=== PATIENT | male | born 1950 | race Caucasian/White ===

== ENCOUNTER 2018-06-08 16:36 | Inpatient (IN) | payer MEDICARE ==
[~2018-06-08] VITALS: Ht 177.8 cm; Wt 73.3 kg
[~2018-06-08 16:36] MED LIST: ANTIBIOTIC; ASPI325; CENTRUM SILVER1 EAC2 PO; CLOP75; CODE30; CODEINE; FOLI1 PO; HYDACE5 PO; HYDMOR4; LACT10SY PO; MARIJUANA; Norco 10-325 T1 EACH PO; Prilosec Otc20 MG PO; WARF1; WARF10; WARF7.5; [UNRECOGNIZED DRUG - OTHER]; [UNRECOGNIZED DRUG - REMARK]
[2018-06-08 17:55] LABS: BASOPHILS ABSOLUTE AUTO 0.06 K/mm3 (0.00-0.23); BASOPHILS PERCENT AUTO 1 % (0-2); EOSINOPHILS ABSOLUTE AUTO 0.05 K/mm3 (0.00-0.68); EOSINOPHILS PERCENT AUTO 1 % (0-6); Hematocrit 38.5 % (37.0-53.0); Hemoglobin 13.3 g/dL (13.5-17.5); IMMATURE GRAN ABSOLUTE AUTO 0.05 K/mm3 (0.00-0.10); IMMATURE GRAN PERCENT AUTO 1 % (0-1); LYMPHOCYTES ABSOLUTE AUTO 1.44 K/mm3 (0.84-5.20); LYMPHOCYTES PERCENT AUTO 18 % (21-46); MONOCYTES ABSOLUTE AUTO 1.44 K/mm3 (0.16-1.47); MONOCYTES PERCENT AUTO 18 % (4-13); Mean Corpuscular HGB Conc 34.5 g/dL (31.5-36.5); Mean Corpuscular Volume 104 fL (80-100); Mean Platelet Volume 9.8 fL (9.1-12.4); NEUTROPHILS PERCENT AUTO 62 % (41-73); Platelet Count 114 K/mm3 (150-400); RDW Coefficient Variation 14.3 % (11.7-14.2); RDW Standard Deviation 55.2 fL (35.1-46.3); Red Blood Cell Count 3.69 M/mm3 (4.30-5.90); White Blood Cell Count 8.04 K/mm3 (4.00-11.30)
[2018-06-08] MEDS ORDERED: CLOP75 PO (17:59)
[2018-06-08] MEDS ORDERED: Hair, Skin & N1 EACH PO (18:00)
[2018-06-08] MEDS ORDERED: ATOR20 PO (18:00)
[2018-06-08] MEDS ORDERED: ASPI81CH PO (18:01)
[2018-06-08 18:14] LABS: International Normalized Ratio 1.33; Prothrombin Time Results 13.7 Sec (9.7-11.5)
--- NOTE | 2018-06-08 18:24 | NUR ---
FROM ER TO SDS WITH RN CARDIAC CATH TO UNIT STARTED
[2018-06-08 18:30] LABS: Alanine Aminotransfer (ALT/SGP 57 U/L (12-78); Albumin, Blood 2.8 g/dL (3.4-5.0); Albumin/Globulin Ratio 0.7 (0.8-1.8); Alk Phos 120 U/L (50-136); Anion Gap 7 mmol/L (6-16); Aspartate Aminotrans (AST/SGOT 113 U/L (12-37); Bilirubin, Total 2.2 mg/dL (0.1-1.0); Blood Urea Nitrogen 28 mg/dL (8-24); Bun/Creatinine Ratio 43.1 (12.0-20.0); CO2, Blood 34 mmol/L (21-32); Calcium, Blood 8.2 mg/dL (8.5-10.1); Chloride, Blood 92 mmol/L (98-108); Creatinine, Blood 0.65 mg/dL (0.60-1.20); Glomerular Filtration Rate >60 (60-); Glucose, Blood 104 mg/dL (70-99); Potassium, Blood 2.2 mmol/L (3.5-5.5); Sodium, Blood 133 mmol/L (136-145); Total Protein, Blood 6.8 g/dL (6.4-8.2)
--- NOTE | 2018-06-08 20:00 | NUR ---
PT ADMITTED TO ROOM ICU 12 FROM OR POST VARICE BANDING. PT ARRIVES ON NRB AND HAS BEEN CHANGED TO NASAL CANNULA SINCE AT 4 L/M. HAS MAINTAINED >90 PERCENT SATURATION. WILL CONTINUE TO ASSESS FOR ABILITY TO DECREASE OXYGEN FLOW. DR WOODARD NOTIFIED THAT PT WAS IN UNIT. SHE COMES TO SEE PT. PT NOTED TO BE FLATULANT. DOES STATE HE HAS NOT HAD A BOWEL MOVEMENT IN OVER ONE WEEK. HAS TOLD HIS FAMILY THAT HE INTENDS TO LEAVE IN MORNING BECAUSE HE HAS A CHARTERED FISHING TRIP OUT OF [place] ON MONDAY. DR WOODARD MADE AWARE OF PT'S INTENT TO LEAVE IN AM. HAVE INSTRUCTED PT THAT HE MOST LIKELY WILL NOT BE RELEASED TOMORROW SECONDARY TO BEING POST PROCEDURE. PT AND DAUGHTER ASSIST WITH INTERVIEW AND HISTORY AND PHYSICAL. WILL REVIEW CHART AND PLAN OF CARE FOR THIS PT.
[2018-06-08 20:39] LABS: Magnesium, Blood 1.8 mg/dL (1.6-2.4)
--- NOTE | 2018-06-08 23:00 | NUR ---
PT HAS HAD SEVERAL BLACK COLORED STOOL. PT HAS NO COMPLAINTS OF NAUSEA OR PAIN AT THIS TIME. CONTINUES ON SANDOSTATIN, AND PROTONIX PER ORDERS. PT USES CALL LIGHT SYSTEM APPROPRIATELY. REQUIRES 2 LITERS OF OXYGEN PER NASAL CANNULA WHILE ASLEEP TO MAINTAIN SATURATION > 90 PERCENT. WILL CONTINUE TO MONITOR PT.
[2018-06-09 00:15] LABS: Hematocrit 32.8 % (37.0-53.0); Hemoglobin 11.1 g/dL (13.5-17.5)
--- NOTE | 2018-06-09 02:00 | NUR ---
PT CONTINUES WITHOUT COMPLAINTS OF NAUSEA. HAS HAD BLACK STOOL WITH MAROON COLORATION WHEN EXPOSED TO TOILET WATER. NO COMPLAINTS OF PAIN. HAS BEEN INDEPENDENT IN MOVING ABOUT BED. NO S/S ETOH WITHDRAWALS AT THIS TIME. WILL CONTINUE TO MONITOR PT.
[2018-06-09 04:27] LABS: Hemoglobin 10.1 g/dL (13.5-17.5)
[2018-06-09 04:30] LABS: BASOPHILS ABSOLUTE AUTO 0.01 K/mm3 (0.00-0.23); BASOPHILS PERCENT AUTO 0 % (0-2); EOSINOPHILS PERCENT AUTO 0 % (0-6); Hematocrit 28.4 % (37.0-53.0); Hemoglobin 10.1 g/dL (13.5-17.5); IMMATURE GRAN ABSOLUTE AUTO 0.02 K/mm3 (0.00-0.10); IMMATURE GRAN PERCENT AUTO 1 % (0-1); LYMPHOCYTES ABSOLUTE AUTO 0.42 K/mm3 (0.84-5.20); LYMPHOCYTES PERCENT AUTO 12 % (21-46); MONOCYTES PERCENT AUTO 9 % (4-13); Mean Corpuscular HGB 36.5 pg (26.0-34.0); Mean Corpuscular HGB Conc 35.6 g/dL (31.5-36.5); Mean Corpuscular Volume 103 fL (80-100); Mean Platelet Volume 9.6 fL (9.1-12.4); NEUTROPHILS PERCENT AUTO 78 % (41-73); Platelet Count 74 K/mm3 (150-400); RDW Coefficient Variation 14.5 % (11.7-14.2); RDW Standard Deviation 54.3 fL (35.1-46.3); Red Blood Cell Count 2.77 M/mm3 (4.30-5.90); White Blood Cell Count 3.45 K/mm3 (4.00-11.30)
[2018-06-09 04:45] LABS: Alanine Aminotransfer (ALT/SGP 46 U/L (12-78); Albumin, Blood 2.3 g/dL (3.4-5.0); Albumin/Globulin Ratio 0.7 (0.8-1.8); Alk Phos 89 U/L (50-136); Anion Gap 5 mmol/L (6-16); Aspartate Aminotrans (AST/SGOT 89 U/L (12-37); Blood Urea Nitrogen 24 mg/dL (8-24); Bun/Creatinine Ratio 43.3 (12.0-20.0); CO2, Blood 34 mmol/L (21-32); Chloride, Blood 100 mmol/L (98-108); Creatinine, Blood 0.55 mg/dL (0.60-1.20); Globulin, Blood 3.4 g/dL (2.2-4.0); Glomerular Filtration Rate >60 (60-); Glucose, Blood 152 mg/dL (70-99); Potassium, Blood 2.9 mmol/L (3.5-5.5); Sodium, Blood 139 mmol/L (136-145); Total Protein, Blood 5.7 g/dL (6.4-8.2)
--- NOTE | 2018-06-09 05:36 | NUR ---
PT HAS HAD THREE BM'S THIS NIGHT. HAD STATED ON ADMIT THAT HE HAD BEEN OVER A WEEK WITHOUT BOWEL MOVEMENT. HAS NOT HAD ANY COMPLAINTS OF PAIN OR NAUSEA SINCE ADMIT. HAS BEEN INDEPENDENT WHILE MOVING AOBUT BED. NO COMPLAINTS OF VERTIGO OR DYSPNEA. DID REQUIRE SEVERAL LITERS OF OXYGEN THROUGH THE NIGHT SECONDARY TO DESATURATIONS TO 88 PERCENT. CONTINUES ON OCTREOTIDE AND PROTONIX DRIP. WILL CONTINUE TO MONITOR PT, AND WILL REPORT OFF TO ONCOMING RN.
--- NOTE | 2018-06-09 07:15 | NUR ---
RECEIVED REPORT FROM ANA DE LA GARZA, AND ASSUMED CARE OF PT.
--- NOTE | 2018-06-09 08:00 | NUR ---
CALLED DR. ANDRES RE: PO POTASSIUM ORDER AND DIET. NEW ORDERS PROVIDED.
[2018-06-09 09:09] LABS: BASOPHILS ABSOLUTE AUTO 0.01 K/mm3 (0.00-0.23); BASOPHILS PERCENT AUTO 0 % (0-2); EOSINOPHILS PERCENT AUTO 0 % (0-6); Hematocrit 38.4 % (37.0-53.0); Hemoglobin 12.8 g/dL (13.5-17.5); IMMATURE GRAN ABSOLUTE AUTO 0.02 K/mm3 (0.00-0.10); IMMATURE GRAN PERCENT AUTO 0 % (0-1); LYMPHOCYTES ABSOLUTE AUTO 1.06 K/mm3 (0.84-5.20); LYMPHOCYTES PERCENT AUTO 22 % (21-46); MONOCYTES ABSOLUTE AUTO 0.89 K/mm3 (0.16-1.47); MONOCYTES PERCENT AUTO 18 % (4-13); Mean Corpuscular HGB 36.8 pg (26.0-34.0); Mean Corpuscular HGB Conc 33.3 g/dL (31.5-36.5); NEUTROPHILS PERCENT AUTO 60 % (41-73); Platelet Count 83 K/mm3 (150-400); RDW Coefficient Variation 14.7 % (11.7-14.2); RDW Standard Deviation 59.3 fL (35.1-46.3); Red Blood Cell Count 3.48 M/mm3 (4.30-5.90); White Blood Cell Count 4.88 K/mm3 (4.00-11.30)
[2018-06-09 09:29] LABS: Mean Corpuscular Volume 110 fL (80-100)
--- NOTE | 2018-06-09 13:10 | NUR ---
DR. HERNANDEZ AT BEDSIDE FOR EVALUATION. NEW ORDERS PROVIDED.
--- NOTE | 2018-06-09 14:22 | NUR ---
NURSING SUMMARY ALERT AND ORIENTED X 4, FOLLOWS COMMANDS, DENIES PAIN, VSS. LUNGS CLEAR, DIMINISHED AT THE BASES, ON 2L O2 NC WHILE SLEEPING, REMOVED OXYGEN, SATS REMAINING IN MID-HIGH 90%'S. SR ON THE MONITOR, HR 80'S. PATIENT EXPERIENCED 3 BLOODY STOOLS THUS FAR THIS SHIFT, TWO WERE INCONTINENT STOOLS WHEN PASSING GAS AND ONE WAS A BM ON THE BEDSIDE COMMODE, ALL THREE BM'S WHERE DARK BURGUNDY AND LOOSE. H&H THIS AM 12/38.4, AWAITING RESULTS OF H&H AND POTASSIUM DRAWN AT 1400, POTASSIUM 2.9 THIS AM, GAVE POTASSIUIM CHLORIDE 40 MEQ'S IV. CBC'S SCHEDULED EVERY 8 HOURS, NEXT AT 2100 TONIGHT. OCREOTIDE GTT INFUSING AND PROTONIX DRIP JUST DISCONTINUED WITH NEW ORDER FOR PROTONIX 40 MG IVP BID TO START TONIGHT AT 2100. GAVE BANANA BAG AND DISCONTINUED NS INFUSION PER NEW ORDER. VOIDS PER URINAL OR BEDSIDE COMMODE. OLD HEALING SKIN GRAFT/SCABBED SITE TO LEFT LOWER LEG/RODRIGUEZ AREA, DENIES PAIN. ASSISTED OUT OF BED TO THE BEDSIDE CHAIR TODAY, SAT IN THE CHAIR FOR APPROX. 2 HOURS BEFORE GOING BACK TO BED, MOVES SELF IN BED/REPOSITIONS FREQUENTLY ON HIS OWN. LIVER ULTRASOUND DONE. THREE IV SITES TO RFA 18G, L HAND 20G AND SURI 18G. SCHEDULING PLACEMENT OF POWERGLIDE TODAY. CALLS APPROPRIATELY FOR ASSISTANCE NEEDED.
[2018-06-09 14:38] LABS: Hematocrit 31.5 % (37.0-53.0); Hemoglobin 11.1 g/dL (13.5-17.5)
--- NOTE | 2018-06-09 14:45 | NUR ---
CALLED DR. ANDRES TO REPORT H&H 11.1/31.5, POTASSIUM = 3.0, AND ASKED FOR A STATUS CHANGE. NEW ORDER FOR KDUR 40MEQS PO WITH LAB DRAIN IN THE AM AND TRANSFER TO PCU.
--- NOTE | 2018-06-09 20:00 | NUR ---
ASSUMED CARE OF PT AT 1915. REPORT RECEIVED. PT PRESENTS IN BED. ALERT AND ORIENTED. PLEASANT AND COOPERATIVE WITH CARE AND ASSESSMENT. DENIES COMPLAINTS OF PAIN OR NAUSEA. IS ABLE TO GET OUT OF BED TO COMMODE INDEPENDENTLY. NO COMPLAINTS OF VERTIGO. ACKNOWLEDGES THAT HE CONTINUES TO HAVE LOOSE BLACK/MAROON STOOLS. CONTINUING WITH SERIAL H/H. WILL CLOSELY MONITOR. WILL REVIEW CHART AND PLAN OF CARE FOR THIS PT.
[2018-06-09 21:43] LABS: BASOPHILS ABSOLUTE AUTO 0.02 K/mm3 (0.00-0.23); BASOPHILS PERCENT AUTO 1 % (0-2); EOSINOPHILS ABSOLUTE AUTO 0.09 K/mm3 (0.00-0.68); EOSINOPHILS PERCENT AUTO 2 % (0-6); Hematocrit 27.3 % (37.0-53.0); Hemoglobin 9.3 g/dL (13.5-17.5); IMMATURE GRAN ABSOLUTE AUTO 0.01 K/mm3 (0.00-0.10); IMMATURE GRAN PERCENT AUTO 0 % (0-1); LYMPHOCYTES ABSOLUTE AUTO 1.04 K/mm3 (0.84-5.20); LYMPHOCYTES PERCENT AUTO 24 % (21-46); MONOCYTES ABSOLUTE AUTO 0.61 K/mm3 (0.16-1.47); MONOCYTES PERCENT AUTO 14 % (4-13); Mean Corpuscular HGB 36.8 pg (26.0-34.0); Mean Corpuscular HGB Conc 34.1 g/dL (31.5-36.5); Mean Corpuscular Volume 108 fL (80-100); Mean Platelet Volume 9.6 fL (9.1-12.4); NEUTROPHILS ABSOLUTE AUTO 2.52 K/mm3 (1.96-9.15); NEUTROPHILS PERCENT AUTO 59 % (41-73); Platelet Count 84 K/mm3 (150-400); RDW Coefficient Variation 14.4 % (11.7-14.2); RDW Standard Deviation 56.9 fL (35.1-46.3); Red Blood Cell Count 2.53 M/mm3 (4.30-5.90); White Blood Cell Count 4.29 K/mm3 (4.00-11.30)
--- NOTE | 2018-06-09 22:30 | NUR ---
PT HAS SLOWED ON HAVING LOOSE STOOLS. WEARS ATTENDS SECONDARY TO PASSING SMALL AMOUNTS OF STOOL WITH FLATUS. PT REMAINS ALERT AND ORIENTED. PLEASANT AND COOPERATIVE WITH CARE AND ASSESSMENT. NO S/S ALCOHOL W/D'S AT THIS TIME. HAVE DISCUSSED WITH PT THAT AFTER HAVING HIS VARICES BANDED THAT HE SHOULD DEFINITELY AVOID ETOH WHEN HE GOES HOME. HE VERBALIZES UNDERSTANDING. WILL CONTINUE TO MONITOR.
--- NOTE | 2018-06-10 03:10 | NUR ---
PT CURRENTLY SLEEPING. NO S/S PAIN OR DISTRESS. NO ACTIVE S/S BLEEDING NOTED. MOVES ABOUT BED INDEPENDENTLY. IS GOOD AT REQUESTING ASSIST. WILL CONTINUE TO MONITOR.
[2018-06-10 05:24] LABS: BASOPHILS ABSOLUTE AUTO 0.04 K/mm3 (0.00-0.23); BASOPHILS PERCENT AUTO 1 % (0-2); EOSINOPHILS PERCENT AUTO 3 % (0-6); Hematocrit 27.8 % (37.0-53.0); Hemoglobin 9.5 g/dL (13.5-17.5); IMMATURE GRAN ABSOLUTE AUTO 0.01 K/mm3 (0.00-0.10); IMMATURE GRAN PERCENT AUTO 0 % (0-1); LYMPHOCYTES ABSOLUTE AUTO 0.93 K/mm3 (0.84-5.20); LYMPHOCYTES PERCENT AUTO 27 % (21-46); MONOCYTES ABSOLUTE AUTO 0.46 K/mm3 (0.16-1.47); MONOCYTES PERCENT AUTO 14 % (4-13); Mean Corpuscular HGB Conc 34.2 g/dL (31.5-36.5); Mean Corpuscular Volume 108 fL (80-100); Mean Platelet Volume 9.8 fL (9.1-12.4); NEUTROPHILS ABSOLUTE AUTO 1.85 K/mm3 (1.96-9.15); NEUTROPHILS PERCENT AUTO 55 % (41-73); Platelet Count 84 K/mm3 (150-400); RDW Coefficient Variation 14.4 % (11.7-14.2); RDW Standard Deviation 56.9 fL (35.1-46.3); Red Blood Cell Count 2.57 M/mm3 (4.30-5.90); White Blood Cell Count 3.39 K/mm3 (4.00-11.30)
[2018-06-10 05:45] LABS: Alanine Aminotransfer (ALT/SGP 66 U/L (12-78); Albumin, Blood 2.3 g/dL (3.4-5.0); Albumin/Globulin Ratio 0.7 (0.8-1.8); Alk Phos 78 U/L (50-136); Anion Gap 3 mmol/L (6-16); Aspartate Aminotrans (AST/SGOT 155 U/L (12-37); Bilirubin, Direct 1.6 mg/dL (0.0-0.3); Bilirubin, Indirect 1.4 mg/dL (0.1-0.7); Blood Urea Nitrogen 13 mg/dL (8-24); Bun/Creatinine Ratio 22.6 (12.0-20.0); CO2, Blood 34 mmol/L (21-32); Calcium, Blood 7.3 mg/dL (8.5-10.1); Chloride, Blood 103 mmol/L (98-108); Creatinine, Blood 0.58 mg/dL (0.60-1.20); Globulin, Blood 3.3 g/dL (2.2-4.0); Glomerular Filtration Rate >60 (60-); Glucose, Blood 119 mg/dL (70-99); Phosphorus, Blood 1.5 mg/dL (2.5-4.9); Potassium, Blood 2.9 mmol/L (3.5-5.5); Sodium, Blood 140 mmol/L (136-145); Total Protein, Blood 5.6 g/dL (6.4-8.2)
[2018-06-10 05:52] LABS: Thyroid Stimulating Hormone 0.668 uIU/mL (0.360-4.800)
--- NOTE | 2018-06-10 06:41 | NUR ---
PT HAS BEEN INDEPENDENT IN ROOM. VOIDS QS. CALL MADE TO DR AGUILAR THIS AM CONCERNING LABS. MD TO PUT ORDERS IN SYSTEM. PT DENIES NAUSEA. DOES HAVE COUGH WITHOUT BEING ABLE TO EXPECTORATE. NO S/S BLEEDING AT THIS TIME. WILL CONTINUE TO MONITOR PT, AND WILL REPORT OFF TO ONCOMING RN.
--- NOTE | 2018-06-10 07:20 | NUR ---
ASSUMED CARE: RECEIVED REPORT FROM NOC RN. PT APPEARS TO BE SLEEPING AT THIS TIME WITH EVEN CHEST RISE AND FALL. NO ACUTE DISTRESS NOTED. RECEIVED KCL TO RUN AT THIS TIME WILL ASSESS FURTHER AND CONTINUE TO MONITOR.
--- NOTE | 2018-06-10 17:55 | NUR ---
SHIFT SUMMARY: NO ACUTE CHANGES NOTED T/O THE DAY. PT HAD 2 BM'S THAT WAS NOTED TO BE DARK MAROON IN COLOR. PT HAS BEEN INDEPENDENT IN THE ROOM UP TO THE BSC. PT PROVIDED SELF CARE AFTER BEING PROVIDED THE EQUIPMENT TO CLEAN MICHELLE AREA AND ATTENDS. NO SIGNS OF ALCOHOL WITHDRAW NOTED T/O THE DAY. VSS T/O THE SHIFT. WILL CONTINUE TO MONITOR AND REPORT TO NOC RN. CALL LIGHT IN REACH.
--- NOTE | 2018-06-10 20:51 | NUR ---
PATIENT RESTING QUIETLY IN BED SLEEPING OFF AND ON. NO C/O PAIN OR NAUSEA. VERBALIZED UNDERSTANDING REGARDING HAVING ASSISTANCE WITH GETTING OUT OF BED AND NEED TO CONTINUE TO MONITOR THE LOOK OF HIS BM'S.
[2018-06-11 04:37] LABS: Hematocrit 29.8 % (37.0-53.0); Hemoglobin 10.1 g/dL (13.5-17.5); Mean Corpuscular HGB 36.7 pg (26.0-34.0); Mean Corpuscular HGB Conc 33.9 g/dL (31.5-36.5); Mean Corpuscular Volume 108 fL (80-100); Mean Platelet Volume 9.8 fL (9.1-12.4); Platelet Count 99 K/mm3 (150-400); RDW Coefficient Variation 14.1 % (11.7-14.2); RDW Standard Deviation 55.7 fL (35.1-46.3); Red Blood Cell Count 2.75 M/mm3 (4.30-5.90); White Blood Cell Count 4.18 K/mm3 (4.00-11.30)
[2018-06-11 04:56] LABS: Alanine Aminotransfer (ALT/SGP 89 U/L (12-78); Albumin, Blood 2.3 g/dL (3.4-5.0); Albumin/Globulin Ratio 0.6 (0.8-1.8); Alk Phos 94 U/L (50-136); Anion Gap 3 mmol/L (6-16); Aspartate Aminotrans (AST/SGOT 158 U/L (12-37); Bilirubin, Direct 1.1 mg/dL (0.0-0.3); Bilirubin, Indirect 0.7 mg/dL (0.1-0.7); Bilirubin, Total 1.8 mg/dL (0.1-1.0); Blood Urea Nitrogen 6 mg/dL (8-24); Bun/Creatinine Ratio 11.5 (12.0-20.0); CO2, Blood 34 mmol/L (21-32); Calcium, Blood 7.8 mg/dL (8.5-10.1); Chloride, Blood 103 mmol/L (98-108); Creatinine, Blood 0.52 mg/dL (0.60-1.20); Globulin, Blood 3.6 g/dL (2.2-4.0); Glomerular Filtration Rate >60 (60-); Glucose, Blood 116 mg/dL (70-99); Magnesium, Blood 1.8 mg/dL (1.6-2.4); Phosphorus, Blood 2.8 mg/dL (2.5-4.9); Sodium, Blood 140 mmol/L (136-145); Total Protein, Blood 5.9 g/dL (6.4-8.2)
--- NOTE | 2018-06-11 05:53 | NUR ---
PATIENT TRANSFER TO PCU 8 VIA WHEEL CHAIR. REPORT CALLED TO PAPITO PEREZ PATIENT SLEEPING OFF AND ON T/O NIGHT WITH NO COMPLAINTS AT THIS TIME. NO BM OR SIGN OF BLEEDING T/O NIGHT.
--- NOTE | 2018-06-11 07:15 | NUR ---
SUMMARY PT RECEIVED ICU TRANSFER WITH SHIFT CHANGE.ARRIVED PER W/C.
[2018-06-11] MEDS ORDERED: Oyster Shell C500 MG PO (11:26)
[2018-06-11] MEDS ORDERED: Nicoderm Cq1 EAC1 TOP (11:27)
[2018-06-11] MEDS ORDERED: ONDA4 PO (11:28)
[2018-06-11] MEDS ORDERED: PANT40 PO (11:30)
[2018-06-11] MEDS ORDERED: Micro-K10 MEQ PO (11:31)
[2018-06-11] MEDS ORDERED: SUCR1 PO (11:33)
[2018-06-11] MEDS ORDERED: NADO20 PO (11:35)
--- NOTE | 2018-06-11 17:55 | NUR ---
RECEIVED REPORT AND ASSUMED CARE OF PATIENT, HE IS READY TO GO HOME. DR. ANDRES PLACED ORDERS FOR PATIENT TO BE D/C'D. CALLED AA TO GET MEETING INFORMATION FOR [facility], COLLECTED AND PRINTED ALL DATA FOR DIAGNOSES, MEDICATIONS AND CESSATION AND EDUCATED PATIENT AND PROVIDED INFORMATION IN DISCHARGE FOLDER. PT EXPRESSED UNDERSTANDING AND EXPRESSED DESIRE TO ATTEND AA, HIS NIECE OFFERED TO GO TOGETHER TO MEETINGS, PT SEEMED HAPPY AND LESS APPREHENSIVE TO GO TO MEETINGS WHEN SHE OFFERED TO GO ALONG. ASSISTED PATIENT TO GET DRESSED AND DISCHARGED WITH NIECE HOME.
== END 2018-06-11 14:32 | disposition home or self-care (01) | DRG 369 ==
LOC: ER 16:36 → PCU 18:20 → ICUW 19:09 → PCU 06-11 06:04
PROVIDERS: Family Medicine; Physician Assistant; Student in an Organized Health Care Education/Training Program; ADMIT Internal Medicine
PROC: 06L38CZ Occlusion of Esophageal Vein with Extraluminal Device, Via Natural or Artificial Opening Endoscopic (ICD-10-PCS; principal; 2018-06-08 18:15)
DX: I85.01 Esophageal varices with bleeding (principal); K76.6 Portal hypertension; D62 Acute posthemorrhagic anemia; K70.30 Alcoholic cirrhosis of liver without ascites; K31.89 Other diseases of stomach and duodenum; D50.0 Iron deficiency anemia secondary to blood loss (chronic); K72.90 Hepatic failure, unspecified without coma; F10.10 Alcohol abuse, uncomplicated
CPT/HCPCS: 36415; 80048; 80053; 80076; 82248; 83690; 83735; 84100; 84132; 84443; 85014; 85018; 85025; 85027; 85610; 86850; 86900; 86901; 93005; 93010; 93975; 96365; 96375; 96376; 99285-25; C1751; C9113; J0171; J0330; J0744; J1100; J1430; J2354; J2370; J2405; J2704; J2765; J3010; J3411; J3475; J3480; J7030; J7042; J7050; J7060

== ENCOUNTER 2019-02-28 09:24 | Emergency (ER) | payer MEDICARE ==
[~2019-02-28] VITALS: Ht 175.3 cm; Wt 70.3 kg
[~2019-02-28 09:24] MED LIST changes: +ASPI81CH PO; +ATOR20 PO; +ATOR40TA; +Acetaminophen325 M1 PO; +CLOP75 PO; +DOCU100 PO; +Hair, Skin & N1 EACH PO; +Micro-K10 MEQ PO; +NADO20 PO; +Nicoderm Cq1 EAC1 TOP; +Norco 5-325 Ta1 EACH PO; +ONDA4 PO; +Oyster Shell C500 MG PO; +PANT40 PO; +SUCR1 PO
[2019-02-28] MEDS ORDERED: Lipitor20 MG PO (09:59)
[2019-02-28] MEDS ORDERED: CLOP75 PO (10:00)
[2019-02-28 10:35] LABS: BASOPHILS ABSOLUTE AUTO 0.03 K/mm3 (0.00-0.23); BASOPHILS PERCENT AUTO 1 % (0-2); EOSINOPHILS ABSOLUTE AUTO 0.03 K/mm3 (0.00-0.68); EOSINOPHILS PERCENT AUTO 1 % (0-6); Hematocrit 45.2 % (37.0-53.0); Hemoglobin 15.9 g/dL (13.5-17.5); IMMATURE GRAN ABSOLUTE AUTO 0.02 K/mm3 (0.00-0.10); IMMATURE GRAN PERCENT AUTO 1 % (0-1); LYMPHOCYTES ABSOLUTE AUTO 0.65 K/mm3 (0.84-5.20); LYMPHOCYTES PERCENT AUTO 15 % (21-46); MONOCYTES ABSOLUTE AUTO 0.63 K/mm3 (0.16-1.47); MONOCYTES PERCENT AUTO 15 % (4-13); Mean Corpuscular HGB 36.4 pg (26.0-34.0); Mean Corpuscular HGB Conc 35.2 g/dL (31.5-36.5); Mean Corpuscular Volume 103 fL (80-100); Mean Platelet Volume 10.1 fL (9.1-12.4); NEUTROPHILS ABSOLUTE AUTO 2.95 K/mm3 (1.96-9.15); NEUTROPHILS PERCENT AUTO 68 % (41-73); Platelet Count 100 K/mm3 (150-400); RDW Coefficient Variation 13.3 % (11.7-14.2); RDW Standard Deviation 51.6 fL (35.1-46.3); Red Blood Cell Count 4.37 M/mm3 (4.30-5.90); White Blood Cell Count 4.31 K/mm3 (4.00-11.30)
[2019-02-28 10:53] LABS: Alanine Aminotransfer (ALT/SGP 51 U/L (12-78); Albumin, Blood 3.2 g/dL (3.4-5.0); Albumin/Globulin Ratio 0.6 (0.8-1.8); Alk Phos 158 U/L (50-136); Anion Gap 5 mmol/L (6-16); Aspartate Aminotrans (AST/SGOT 135 U/L (12-37); Bilirubin, Total 2.9 mg/dL (0.1-1.0); Blood Urea Nitrogen 8 mg/dL (8-24); Bun/Creatinine Ratio 12.7 (12.0-20.0); CO2, Blood 35 mmol/L (21-32); Calcium, Blood 9.1 mg/dL (8.5-10.1); Chloride, Blood 97 mmol/L (98-108); Creatinine, Blood 0.63 mg/dL (0.60-1.20); Globulin, Blood 5.5 g/dL (2.2-4.0); Glomerular Filtration Rate >60 (60-); Glucose, Blood 117 mg/dL (70-99); Potassium, Blood 2.5 mmol/L (3.5-5.5); Sodium, Blood 137 mmol/L (136-145); Total Protein, Blood 8.7 g/dL (6.4-8.2)
== END 2019-02-28 12:10 | disposition home or self-care (01) ==
LOC: ER 09:24
PROVIDERS: Emergency Medicine
DX: E87.6 Hypokalemia (principal); K76.89 Other specified diseases of liver; K70.9 Alcoholic liver disease, unspecified; F17.210 Nicotine dependence, cigarettes, uncomplicated; Z79.899 Other long term (current) drug therapy
CPT/HCPCS: 36415; 80053; 83690; 85025; 99284

== ENCOUNTER 2020-01-09 11:09 | Observation (INO) | payer MEDICARE ==
[~2020-01-09] VITALS: Ht 177.8 cm; Wt 70.7 kg
[~2020-01-09 11:09] MED LIST changes: -ATOR40TA; +ATOR40TA PO; +Aspir 8181 MG PO; +CIPR500 PO; +FAMO40 PO; +Lipitor20 MG PO; +POTCHL20ER PO; +PROP10 PO
[2020-01-09 11:38] LABS: BASOPHILS ABSOLUTE AUTO 0.06 K/mm3 (0.00-0.23); BASOPHILS PERCENT AUTO 2 % (0-2); EOSINOPHILS ABSOLUTE AUTO 0.08 K/mm3 (0.00-0.68); EOSINOPHILS PERCENT AUTO 2 % (0-6); Hematocrit 38.6 % (37.0-53.0); Hemoglobin 12.7 g/dL (13.5-17.5); IMMATURE GRAN ABSOLUTE AUTO 0.01 K/mm3 (0.00-0.10); IMMATURE GRAN PERCENT AUTO 0 % (0-1); LYMPHOCYTES ABSOLUTE AUTO 0.74 K/mm3 (0.84-5.20); LYMPHOCYTES PERCENT AUTO 21 % (21-46); MONOCYTES ABSOLUTE AUTO 0.66 K/mm3 (0.16-1.47); MONOCYTES PERCENT AUTO 19 % (4-13); Mean Corpuscular HGB 29.7 pg (26.0-34.0); Mean Corpuscular HGB Conc 32.9 g/dL (31.5-36.5); Mean Corpuscular Volume 90 fL (80-100); Mean Platelet Volume 10.6 fL (9.1-12.4); NEUTROPHILS ABSOLUTE AUTO 1.98 K/mm3 (1.96-9.15); NEUTROPHILS PERCENT AUTO 56 % (41-73); Platelet Count 75 K/mm3 (150-400); RDW Coefficient Variation 18.9 % (11.7-14.2); RDW Standard Deviation 61.6 fL (35.1-46.3); Red Blood Cell Count 4.28 M/mm3 (4.30-5.90); White Blood Cell Count 3.53 K/mm3 (4.00-11.30)
[2020-01-09 12:09] LABS: Alanine Aminotransfer (ALT/SGP 77 U/L (12-78); Albumin, Blood 2.6 g/dL (3.4-5.0); Albumin/Globulin Ratio 0.4 (0.8-1.8); Alk Phos 204 U/L (50-136); Anion Gap 6 mmol/L (6-16); Aspartate Aminotrans (AST/SGOT 275 U/L (12-37); Bilirubin, Total 4.4 mg/dL (0.1-1.0); Blood Urea Nitrogen 6 mg/dL (8-24); Bun/Creatinine Ratio 9.4 (12.0-20.0); CO2, Blood 35 mmol/L (21-32); Calcium, Blood 8.3 mg/dL (8.5-10.1); Chloride, Blood 91 mmol/L (98-108); Creatinine, Blood 0.64 mg/dL (0.60-1.20); Globulin, Blood 5.8 g/dL (2.2-4.0); Glomerular Filtration Rate >60 (60-); Glucose, Blood 109 mg/dL (70-99); Potassium, Blood 2.2 mmol/L (3.5-5.5); Sodium, Blood 132 mmol/L (136-145); Total Protein, Blood 8.4 g/dL (6.4-8.2)
[2020-01-09 14:48] LABS: Source, Urine Clean Catch
[2020-01-09 14:59] LABS: Appearance, Urine Clear (Clear); Blood, Urine 1+ (Neg); Color, Urine Amber (P-Yellow); Glucose Qualitative, Urine Neg (Neg); Ketones, Urine Neg (Neg); Leukocyte Esterase, Urine 1+ (Neg); Nitrite, Urine Neg (Neg); Protein, Urine Neg (Neg); Urobilinogen, Urine 4+ (Normal)
[2020-01-09 15:06] LABS: Bilirubin, Urine 2+ (Neg)
[2020-01-09 15:08] LABS: Bacteria Rare /hpf; Red Blood Cells, Urine 0-2 /hpf (0-2); Squamous Epithelial Cells Not Seen /hpf (Few); White Blood Cells, Urine 0-2 /hpf (0-5)
[2020-01-09 17:10] LABS: CPK Creatine Kinase 260 U/L (39-308); Creatine Kinase MB <1.0 ng/mL (0.0-3.6); Creatine Kinase MB Index Unable to Calculate (0.0-4.0)
--- NOTE | 2020-01-09 19:38 | NUR ---
SHIFT SUMMARY- ADMIT NOTE- PT ADMITTED THIS EVENING THROUGH THE ED FOR LOW POTASSIUM. REPORT RECIEVED FROM ED RN PT HAS RECIEVED 60MEQ PO POTASSIUM AND IS NOW INFUSING HIS SECOND K JOHN. RENAL FUNCTION PANEL ORDERED AFTER THE PT POTASSIUM INFUSION. SPOKE TO MACHINE CAPTAIN AND SHE IS AWARE AND WILL COME BACK AT 1999. PT ALERT AND ORIENTED, PT FLIPPED INTO AFIB WITH RVR WHILE IN THE ED WITH A RATE IN THE 130'S. IV METOPROLOL GIVEN PRIOR TO PT TRANSFER. PT IN NSR ON TELE ON ARRIVAL. PT CURRENTLY RECIEVING AN ECHO. PER REPORT FROM ED RN PT IS NOT IN ANY ISOLATION AT THIS TIME. PT ON REGULAR DIET. SKIN IS A LITTLE JAUNDICED, ABDOMEN A LITTLE DISTENDED. PT STATES HE IS AN EVERY DAY DRINKER HIS LAST DRINK WAS LAST NIGHT, NOT TREMMORS, NAUSEA, HALLUCINATIONS, SWEATS, HEADACHE OR CLOUDING OF ORIENTATION NOTED AT THE TIME OF ARRIVAL. PT HAS A BANANNA BAG RUNNING CURRENTLY INTO A SECOND IV. HEART SOUNDS DISTANT, LUNGS WHEEZY T/O PT IS A CURRENT EVERY DAY SMOKER. NO O2 AT THIS TIME. BEDSIDE REPORT COMPLETED, NO S&S OF DISTRESS NOTED.
--- NOTE | 2020-01-09 19:55 | NUR ---
Echo done by Jeni Adams RDCS.
[2020-01-09 20:31] LABS: Hematocrit 37.6 % (37.0-53.0); Hemoglobin 12.6 g/dL (13.5-17.5)
[2020-01-09 20:45] LABS: Albumin, Blood 2.5 g/dL (3.4-5.0); Anion Gap 8 mmol/L (6-16); Blood Urea Nitrogen 5 mg/dL (8-24); CO2, Blood 31 mmol/L (21-32); Calcium, Blood 8.4 mg/dL (8.5-10.1); Chloride, Blood 92 mmol/L (98-108); Creatinine, Blood 0.62 mg/dL (0.60-1.20); Glomerular Filtration Rate >60 (60-); Glucose, Blood 153 mg/dL (70-99); Magnesium, Blood 1.6 mg/dL (1.6-2.4); Phosphorus, Blood 1.7 mg/dL (2.5-4.9); Sodium, Blood 131 mmol/L (136-145)
[2020-01-10 02:12] LABS: Hematocrit 34.9 % (37.0-53.0); Hemoglobin 11.6 g/dL (13.5-17.5)
[2020-01-10 02:32] LABS: Creatine Kinase MB 1.5 ng/mL (0.0-3.6); Creatine Kinase MB Index 0.5 (0.0-4.0); Troponin I 0.016 ng/mL (0.000-0.040)
--- NOTE | 2020-01-10 05:12 | NUR ---
HAND SCUDDER SUMMARY PT HAS HAD TELE ON W NO EVENTS RUNNING NSR IN THE 80'S PER SENIOR INFORMATICA ETL DEVELOPER. CIWA'S HAVE BEEN 0 EXCEPT FOR THE PT HAVING NAUSEA WHICH HE REPORTED WAS FROM THE POTASSIUM TABS, ZOFRAN WAS GIVEN W RELIEF. PT DENIES EVER HAVE ETOH WITHDRWLS IN THE PAST. PT HAS SLEPT COMFORTABLY W CALL LIGHT WITHIN REACH, WCTM.
[2020-01-10 05:21] LABS: Hematocrit 35.8 % (37.0-53.0); Hemoglobin 11.8 g/dL (13.5-17.5); Mean Corpuscular HGB 29.6 pg (26.0-34.0); Mean Corpuscular Volume 90 fL (80-100); Mean Platelet Volume 10.7 fL (9.1-12.4); Platelet Count 61 K/mm3 (150-400); RDW Standard Deviation 62.4 fL (35.1-46.3); Red Blood Cell Count 3.98 M/mm3 (4.30-5.90)
[2020-01-10 05:41] LABS: Alanine Aminotransfer (ALT/SGP 64 U/L (12-78); Albumin, Blood 2.3 g/dL (3.4-5.0); Albumin/Globulin Ratio 0.5 (0.8-1.8); Alk Phos 179 U/L (50-136); Anion Gap 6 mmol/L (6-16); Aspartate Aminotrans (AST/SGOT 228 U/L (12-37); Bilirubin, Total 5.6 mg/dL (0.1-1.0); Blood Urea Nitrogen 6 mg/dL (8-24); Bun/Creatinine Ratio 9.3 (12.0-20.0); CO2, Blood 32 mmol/L (21-32); Calcium, Blood 8.4 mg/dL (8.5-10.1); Chloride, Blood 96 mmol/L (98-108); Creatinine, Blood 0.65 mg/dL (0.60-1.20); Globulin, Blood 5.1 g/dL (2.2-4.0); Glomerular Filtration Rate >60 (60-); Glucose, Blood 102 mg/dL (70-99); Magnesium, Blood 1.6 mg/dL (1.6-2.4); Potassium, Blood 3.1 mmol/L (3.5-5.5); Sodium, Blood 134 mmol/L (136-145); Total Protein, Blood 7.4 g/dL (6.4-8.2)
[2020-01-10 10:20] LABS: CPK Creatine Kinase 366 U/L (39-308); Creatine Kinase MB 1.8 ng/mL (0.0-3.6); Creatine Kinase MB Index 0.5 (0.0-4.0); Troponin I <0.015 ng/mL (0.000-0.040)
[2020-01-10] MEDS ORDERED: POTA10T PO (14:03)
--- NOTE | 2020-01-10 15:47 | NUR ---
DISHCHARGED HOME POST PL[facility] OF [facility]. VERBALIZED UNDERSTANDING OF DISCHARGE ORDERS, FOLLOW-UP, AND MEDICATIONS. MEDICATION RX SENT TO [facility]. ALL PERSONAL BELONGINGS WERE IN PATIENT POSESSION AT TIME OF DISCHARGE
== END 2020-01-10 14:49 | disposition home or self-care (01) ==
LOC: ER 11:09 → MEDS 11:10
PROVIDERS: Emergency Medicine; ADMIT Internal Medicine
DX: R55 Syncope and collapse (principal); E87.6 Hypokalemia; E87.1 Hypo-osmolality and hyponatremia; R00.0 Tachycardia, unspecified; E83.39 Other disorders of phosphorus metabolism; K70.30 Alcoholic cirrhosis of liver without ascites; F10.20 Alcohol dependence, uncomplicated; F17.210 Nicotine dependence, cigarettes, uncomplicated; Z88.1 Allergy status to other antibiotic agents; Z79.899 Other long term (current) drug therapy; Z23 Encounter for immunization; Z20.828 Contact with and (suspected) exposure to other viral communicable diseases; W19.XXXA Unspecified fall, initial encounter
CPT/HCPCS: 36415; 80053; 80069; 81001; 82550; 82553; 83735; 84100; 84132; 84484; 85014; 85018; 85025; 85027; 87086; 93005; 93010; 93306; 96365; 96366; 96368; 96375; 99285-25; A9270; A9270-GY; J2405; J3411; J3475; J3480; J7030; J7042; J7060

== ENCOUNTER 2020-02-16 19:09 | Inpatient (IN) | payer MEDICARE ==
[~2020-02-16] VITALS: Ht 177.8 cm; Wt 75.9 kg
[~2020-02-16 19:09] MED LIST changes: +POTA10T PO
[2020-02-16 20:29] LABS: Alanine Aminotransfer (ALT/SGP 50 U/L (12-78); Albumin, Blood 2.4 g/dL (3.4-5.0); Albumin/Globulin Ratio 0.4 (0.8-1.8); Alk Phos 211 U/L (50-136); Anion Gap 14 mmol/L (6-16); Aspartate Aminotrans (AST/SGOT 203 U/L (12-37); Bilirubin, Total 7.1 mg/dL (0.1-1.0); Blood Urea Nitrogen 8 mg/dL (8-24); CO2, Blood 28 mmol/L (21-32); Calcium, Blood 9.8 mg/dL (8.5-10.1); Chloride, Blood 90 mmol/L (98-108); Creatinine, Blood 0.57 mg/dL (0.60-1.20); Glomerular Filtration Rate >60 (60-); Glucose, Blood 101 mg/dL (70-99); Potassium, Blood 2.5 mmol/L (3.5-5.5); Sodium, Blood 132 mmol/L (136-145); Total Protein, Blood 8.4 g/dL (6.4-8.2)
[2020-02-16 20:39] LABS: Magnesium, Blood 1.1 mg/dL (1.6-2.4)
[2020-02-16 20:40] LABS: BASOPHILS ABSOLUTE AUTO 0.03 K/mm3 (0.00-0.23); BASOPHILS PERCENT AUTO 1 % (0-2); EOSINOPHILS ABSOLUTE AUTO 0.03 K/mm3 (0.00-0.68); EOSINOPHILS PERCENT AUTO 1 % (0-6); Hematocrit 32.1 % (37.0-53.0); Hemoglobin 11.4 g/dL (13.5-17.5); IMMATURE GRAN ABSOLUTE AUTO 0.03 K/mm3 (0.00-0.10); IMMATURE GRAN PERCENT AUTO 1 % (0-1); LYMPHOCYTES ABSOLUTE AUTO 0.89 K/mm3 (0.84-5.20); LYMPHOCYTES PERCENT AUTO 18 % (21-46); MONOCYTES ABSOLUTE AUTO 0.96 K/mm3 (0.16-1.47); MONOCYTES PERCENT AUTO 20 % (4-13); Mean Corpuscular HGB 36.4 pg (26.0-34.0); Mean Corpuscular HGB Conc 35.5 g/dL (31.5-36.5); Mean Corpuscular Volume 103 fL (80-100); Mean Platelet Volume 10.7 fL (9.1-12.4); NEUTROPHILS ABSOLUTE AUTO 2.94 K/mm3 (1.96-9.15); NEUTROPHILS PERCENT AUTO 60 % (41-73); Platelet Count 199 K/mm3 (150-400); RDW Standard Deviation 94.6 fL (35.1-46.3); Red Blood Cell Count 3.13 M/mm3 (4.30-5.90); White Blood Cell Count 4.88 K/mm3 (4.00-11.30)
[2020-02-16 21:01] LABS: International Normalized Ratio 1.54; Prothrombin Time Results 16.1 Sec (9.7-11.5)
[2020-02-16 22:38] LABS: Hematocrit 32.1 % (37.0-53.0)
--- NOTE | 2020-02-17 00:15 | NUR ---
PT ARRIVED FROM ER AND SELF TRANSFERED TO BED; DAUGHTER AT BEDSIDE FOR SHORT TIME; PT A&O; STATES VERY TIRED; PROTONIX GTT INFUSING; OCTREOTIDE GTT; MAG COMPLETE; PT STATES NO WITHDRAWAL SYMPTOMS AT THIS TIME, STATES HE HAS NOT EXPERIECED WITHDRAWAL SYMPTOMS; EDUCATED ON PT SAFETY AND UNIT PROTOCOL; CALL LIGHT IN REACH; BED IN LOWEST POSITION; BED ALARM ON FOR SAFETY.
[2020-02-17 05:22] LABS: BASOPHILS ABSOLUTE AUTO 0.03 K/mm3 (0.00-0.23); BASOPHILS PERCENT AUTO 1 % (0-2); EOSINOPHILS PERCENT AUTO 3 % (0-6); Hematocrit 31.3 % (37.0-53.0); Hemoglobin 10.5 g/dL (13.5-17.5); IMMATURE GRAN ABSOLUTE AUTO 0.01 K/mm3 (0.00-0.10); IMMATURE GRAN PERCENT AUTO 0 % (0-1); LYMPHOCYTES ABSOLUTE AUTO 0.99 K/mm3 (0.84-5.20); LYMPHOCYTES PERCENT AUTO 27 % (21-46); MONOCYTES ABSOLUTE AUTO 0.64 K/mm3 (0.16-1.47); MONOCYTES PERCENT AUTO 17 % (4-13); Mean Corpuscular HGB 35.2 pg (26.0-34.0); Mean Corpuscular HGB Conc 33.5 g/dL (31.5-36.5); Mean Corpuscular Volume 105 fL (80-100); Mean Platelet Volume 9.9 fL (9.1-12.4); NEUTROPHILS ABSOLUTE AUTO 1.96 K/mm3 (1.96-9.15); NEUTROPHILS PERCENT AUTO 53 % (41-73); Platelet Count 82 K/mm3 (150-400); RDW Coefficient Variation 25.6 % (11.7-14.2); RDW Standard Deviation 98.1 fL (35.1-46.3); Red Blood Cell Count 2.98 M/mm3 (4.30-5.90); White Blood Cell Count 3.73 K/mm3 (4.00-11.30)
[2020-02-17 05:44] LABS: Alanine Aminotransfer (ALT/SGP 38 U/L (12-78); Albumin, Blood 2.2 g/dL (3.4-5.0); Albumin/Globulin Ratio 0.5 (0.8-1.8); Alk Phos 159 U/L (50-136); Anion Gap 5 mmol/L (6-16); Aspartate Aminotrans (AST/SGOT 141 U/L (12-37); Bilirubin, Total 6.3 mg/dL (0.1-1.0); Blood Urea Nitrogen 7 mg/dL (8-24); Bun/Creatinine Ratio 12.7 (12.0-20.0); CO2, Blood 34 mmol/L (21-32); Calcium, Blood 8.6 mg/dL (8.5-10.1); Chloride, Blood 97 mmol/L (98-108); Creatinine, Blood 0.55 mg/dL (0.60-1.20); Globulin, Blood 4.8 g/dL (2.2-4.0); Glomerular Filtration Rate >60 (60-); Glucose, Blood 86 mg/dL (70-99); Potassium, Blood 2.9 mmol/L (3.5-5.5); Sodium, Blood 136 mmol/L (136-145)
--- NOTE | 2020-02-17 06:24 | NUR ---
SHIFT SUMMARY PT A&O X4; VSS; DENIES CHEST PAIN; O2 SATS >93 ON 2L NC; PT STATES HE DOES NOT USE O2 AT BASELINE; USES URINAL IN BED, URINE IS DK. BALDO; PT HAS OPEN ABRASIONS ON LLE AND VARIOUS SCABS / WOUNDS OF VARIOUS HEALING ON BLE; NUMEROUS IV MEDICATIONS ALTERNATING T/O SHIFT; POTASSIUM, ALBUMIN, THIAMINE, OCTREOTIDE AND PROTONIX GTT; NO N/V SINCE ARRIVAL TO UNIT; HGB 10.5 THIS AM; PT NPO AT THIS TIME; NO DISTRESS NOTED; CALL LIGHT IN REACH; BED IN LOWEST POSITION; WILL CONTINUE TO MONITOR CLOSELY UNTIL HAND OFF TO DAY SHIFT RN.
[2020-02-17 13:17] LABS: Hematocrit 34.9 % (37.0-53.0); Hemoglobin 11.7 g/dL (13.5-17.5)
[2020-02-17 13:45] LABS: Albumin, Blood 2.3 g/dL (3.4-5.0); Anion Gap 9 mmol/L (6-16); Blood Urea Nitrogen 8 mg/dL (8-24); CO2, Blood 28 mmol/L (21-32); Calcium, Blood 8.1 mg/dL (8.5-10.1); Chloride, Blood 97 mmol/L (98-108); Creatinine, Blood 0.61 mg/dL (0.60-1.20); Glomerular Filtration Rate >60 (60-); Glucose, Blood 174 mg/dL (70-99); Phosphorus, Blood 1.5 mg/dL (2.5-4.9); Potassium, Blood 3.4 mmol/L (3.5-5.5); Sodium, Blood 134 mmol/L (136-145)
--- NOTE | 2020-02-17 13:48 | NUR ---
PERMISSION FOR CARE I, MECCA LERNER, A [facility] [place] DEALER SALES REP, RECEIVED PERMISSION FROM THIS PATIENT TO PROVIDE CARE FOR HIM ON 02/17/2020.
[2020-02-17 16:23] LABS: Hematocrit 31.6 % (37.0-53.0); Hemoglobin 10.6 g/dL (13.5-17.5)
--- NOTE | 2020-02-17 17:51 | NUR ---
SHIFT SUMMARY; ASSUMED CARE AT 0700, REPORT FROM KIM. Macdonald/OX4. UP TO BESIDE COMMODE DURING SHIFT WITH STEADY GAIT AND STANBY ASSIST. NO EMESIS DURING SHIFT OR SIGNS OF GI BLEEDING. ADVANCED DIET PER ORDERS, TOLERATED WELL. CIWA Q4, NO CIWA MEDS REQUIRED AT THIS TIME. STATUS CHANGED TO MEDICAL DURING SHIFT. VSS, WILL CONTINUE TO TREAT AND MONITOR UNTIL CHANGE OF SHIFT.
[2020-02-17 21:59] LABS: Hematocrit 32.5 % (37.0-53.0)
[2020-02-18 04:18] LABS: BASOPHILS ABSOLUTE AUTO 0.04 K/mm3 (0.00-0.23); BASOPHILS PERCENT AUTO 1 % (0-2); EOSINOPHILS ABSOLUTE AUTO 0.15 K/mm3 (0.00-0.68); EOSINOPHILS PERCENT AUTO 4 % (0-6); Hematocrit 26.8 % (37.0-53.0); Hemoglobin 9.3 g/dL (13.5-17.5); IMMATURE GRAN ABSOLUTE AUTO 0.02 K/mm3 (0.00-0.10); IMMATURE GRAN PERCENT AUTO 1 % (0-1); LYMPHOCYTES PERCENT AUTO 17 % (21-46); MONOCYTES ABSOLUTE AUTO 0.49 K/mm3 (0.16-1.47); MONOCYTES PERCENT AUTO 14 % (4-13); Mean Corpuscular HGB 37.1 pg (26.0-34.0); Mean Corpuscular HGB Conc 34.7 g/dL (31.5-36.5); Mean Corpuscular Volume 107 fL (80-100); NEUTROPHILS ABSOLUTE AUTO 2.28 K/mm3 (1.96-9.15); NEUTROPHILS PERCENT AUTO 64 % (41-73); Platelet Count 69 K/mm3 (150-400); RDW Coefficient Variation 24.9 % (11.7-14.2); RDW Standard Deviation 95.8 fL (35.1-46.3); Red Blood Cell Count 2.51 M/mm3 (4.30-5.90); White Blood Cell Count 3.58 K/mm3 (4.00-11.30)
[2020-02-18 04:34] LABS: Alanine Aminotransfer (ALT/SGP 32 U/L (12-78); Albumin, Blood 1.7 g/dL (3.4-5.0); Albumin/Globulin Ratio 0.4 (0.8-1.8); Alk Phos 140 U/L (50-136); Anion Gap 5 mmol/L (6-16); Aspartate Aminotrans (AST/SGOT 132 U/L (12-37); Bilirubin, Total 5.5 mg/dL (0.1-1.0); Blood Urea Nitrogen 7 mg/dL (8-24); Bun/Creatinine Ratio 11.5 (12.0-20.0); CO2, Blood 28 mmol/L (21-32); Calcium, Blood 6.6 mg/dL (8.5-10.1); Chloride, Blood 105 mmol/L (98-108); Creatinine, Blood 0.61 mg/dL (0.60-1.20); Glomerular Filtration Rate >60 (60-); Glucose, Blood 95 mg/dL (70-99); Magnesium, Blood 1.2 mg/dL (1.6-2.4); Potassium, Blood 3.1 mmol/L (3.5-5.5); Sodium, Blood 138 mmol/L (136-145); Total Protein, Blood 5.7 g/dL (6.4-8.2)
--- NOTE | 2020-02-18 05:57 | NUR ---
LABS / CALL TO MD CALL TO MD AGUILAR TO REPORT K: 3.1 & M.2. MD W/ ORDERS FOR IV MG & PO KCL, SEE ORDERS.
--- NOTE | 2020-02-18 06:40 | NUR ---
SHIFT SUMMARY PT MEDICAL W/ TELE STATUS. A&O X4. VSS. MONITOR SHOWING SR-ST, HR 80's-110. SPO2 > 92% ON RA. CIWA: 1 THIS SHIFT. PT W/ MULTIPLE LOOSE, SEMI FORMED BM's THIS SHIFT. PT SUPREME COURT JUDGE REPORTING "SMALL STREAK OF BLOOD" WITH PT WIPING THIS AM. NO BLOOD NOTED IN STOOL. NS GTT, PROTONIX GTT, & OCTREOTIDE GTT INFUSING PER ORDERS.
--- NOTE | 2020-02-18 07:40 | NUR ---
Bedside report received from Maia Stone. PT is awake, denies pain, nausea/vomiting. STates has been awake all night with frequent bowel movmements, all brown. Voiding yellow urine. Reports occasional productive cough.
--- NOTE | 2020-02-18 09:38 | NUR ---
Pt states doctor told him that he can go home once his magnesium and potassium levels normalize. He is tolerating his diet, and having no complaints at this time. Protonix gtt stopped per orders, and anticipating other orders for PPI from the hospitalist.
--- NOTE | 2020-02-18 11:02 | NUR ---
Spiritual care visit conducted. Patient tells me that if his blood labs come back good that he may DC today. He states that because of the many interuptions during the night that he did not sleep well and is hoping to get some sleep at the time of the visit. I let him rest and will continue to remain available.
--- NOTE | 2020-02-18 11:15 | NUR ---
Room assignment given for the pt on medical floor. Pt states he was told he might go home today.Call to Dr. Dixon to ask about possibility of discharge home today. Plan is for labs to be rechecked at noon, follow up with the doctor to find out about discharge home this afternoon.
[2020-02-18 12:35] LABS: Hematocrit 31.3 % (37.0-53.0); Hemoglobin 10.5 g/dL (13.5-17.5)
[2020-02-18 13:13] LABS: Anion Gap 6 mmol/L (6-16); Blood Urea Nitrogen 7 mg/dL (8-24); Bun/Creatinine Ratio 11.4 (12.0-20.0); CO2, Blood 28 mmol/L (21-32); Calcium, Blood 7.1 mg/dL (8.5-10.1); Chloride, Blood 100 mmol/L (98-108); Creatinine, Blood 0.61 mg/dL (0.60-1.20); Glomerular Filtration Rate >60 (60-); Glucose, Blood 149 mg/dL (70-99); Magnesium, Blood 1.5 mg/dL (1.6-2.4); Phosphorus, Blood 1.3 mg/dL (2.5-4.9); Potassium, Blood 3.7 mmol/L (3.5-5.5); Sodium, Blood 134 mmol/L (136-145)
--- NOTE | 2020-02-18 14:30 | NUR ---
PT ARRIVED TO THE MEDICAL FLOOR FROM THE PCU VIA WHEELCHAIR, PLEASANT AND COOPERATIVE, THE PT TRANSFERED TO THE BED WITH MINIMAL ASSISTANCE, THE PT IS SLIGHTLY JAUNDICE, ABD DISTENDED AND FIRM PT DENIES ANY WITHDRAWL SYMPTOMS AT THIS TIME, PT APPEARS TO BE BREATHING EASILY ON RA, PT WAS ORIENTED TO THE ROOM LAYOUT AND CALL SYSTEM, CALL LIGHT IN REACH
--- NOTE | 2020-02-18 14:31 | NUR ---
pt taken for CT scan at this time. Ice pack applied at 1345 to right hand due to swelling and redness from IV infiltration.
--- NOTE | 2020-02-18 14:37 | NUR ---
Telephone report given to Etienne Avila at this time.. plan is for pt to go to medical floor from CT scan.
--- NOTE | 2020-02-18 17:27 | NUR ---
PT IS A/OX3, PLEASANT AND COOPERATIVE, UP IND IN HIS ROOM, THE PT APPEARS TO BE BREATHING EASILY ON RA, PT WAS A TRANSFER FROM THE PCU TODAY, PT DENIES ANY PAIN AT THIS TIME, THE PT DENIED ANY ALCOHOL WD SYMPTOMS SO FAR, CALL LIGHT IN REACH, WILL CONTINUE TO MONITOR AND ASSESS FOR CHANGES
--- NOTE | 2020-02-18 20:26 | NUR ---
ASSUMED CARE. VIKTOR IS AOX3, INDEPENDENT IN THE ROOM. DENIES ANY CONCERNS OR ISSUES. NO S/S OF ETOH WITHDRAWLS, SCORE IS 0/10. HAS NOT BEEN HAVING ANY SYMPTOMS ALL DAY. REPORTS STILL HAVING LOOSE STOOLS BUT THEY ARE GETTING BETTER. HE IS ABLE TO GET BACK AND FORTH TO THE BATHROOM. LUNGS ARE DIMINISHED, COUGH IS CHRONIC, OCCATIONAL SECREATIONS. DENIES ANY NEEDS. CALL LIGHT IS IN REACH.
[2020-02-19 05:18] LABS: BASOPHILS ABSOLUTE AUTO 0.04 K/mm3 (0.00-0.23); BASOPHILS PERCENT AUTO 1 % (0-2); EOSINOPHILS ABSOLUTE AUTO 0.17 K/mm3 (0.00-0.68); EOSINOPHILS PERCENT AUTO 4 % (0-6); Hematocrit 32.2 % (37.0-53.0); Hemoglobin 10.9 g/dL (13.5-17.5); IMMATURE GRAN ABSOLUTE AUTO 0.04 K/mm3 (0.00-0.10); IMMATURE GRAN PERCENT AUTO 1 % (0-1); LYMPHOCYTES ABSOLUTE AUTO 0.67 K/mm3 (0.84-5.20); LYMPHOCYTES PERCENT AUTO 17 % (21-46); MONOCYTES ABSOLUTE AUTO 0.59 K/mm3 (0.16-1.47); MONOCYTES PERCENT AUTO 15 % (4-13); Mean Corpuscular HGB 36.5 pg (26.0-34.0); Mean Corpuscular HGB Conc 33.9 g/dL (31.5-36.5); Mean Corpuscular Volume 108 fL (80-100); Mean Platelet Volume 9.1 fL (9.1-12.4); NEUTROPHILS ABSOLUTE AUTO 2.47 K/mm3 (1.96-9.15); NEUTROPHILS PERCENT AUTO 62 % (41-73); Platelet Count 82 K/mm3 (150-400); RDW Coefficient Variation 25.1 % (11.7-14.2); RDW Standard Deviation 98.5 fL (35.1-46.3); Red Blood Cell Count 2.99 M/mm3 (4.30-5.90); White Blood Cell Count 3.98 K/mm3 (4.00-11.30)
[2020-02-19 05:45] LABS: Albumin, Blood 2.5 g/dL (3.4-5.0); Anion Gap 8 mmol/L (6-16); Blood Urea Nitrogen 7 mg/dL (8-24); Bun/Creatinine Ratio 12.2 (12.0-20.0); CO2, Blood 28 mmol/L (21-32); Calcium, Blood 7.5 mg/dL (8.5-10.1); Chloride, Blood 100 mmol/L (98-108); Creatinine, Blood 0.58 mg/dL (0.60-1.20); Glomerular Filtration Rate >60 (60-); Glucose, Blood 99 mg/dL (70-99); Phosphorus, Blood 1.4 mg/dL (2.5-4.9); Potassium, Blood 3.4 mmol/L (3.5-5.5); Sodium, Blood 136 mmol/L (136-145)
--- NOTE | 2020-02-19 06:15 | NUR ---
SHIFT SUMMARY: AOX3, INDEPENDENT IN THE ROOM. NO ETOH WITHDRAWLS. JAUDICE, LARGE DISTENDED ABDOMEN, FIRM. REPORTS DIARRHEA NOW FOR SINCE YESTERDAY. CALLED DR. AGUILAR AND GOT ORDER FOR IMMODIUM 4MG EVERY 4 HOURS. STARTED THIS AM. STATES HE HAD UP TO 15 CHANGES LAST NIGHT DUE TO THIS. HE WAS VERY FRUSTRATED. PHOSPHORUS STILL LOW AT 1.4, K+ 3.4. CALLED DR. AGUILAR AND GOT ORDER FOR IV PHOSPHORUS. NO NAUSEA THIS SHIFT. VS WNL, AFEBRILE. IS WANTING TO GO HOME TODAY. CALL LIGHT HAS REMAINED IN REACH.
[2020-02-19 14:08] LABS: Albumin, Blood 2.6 g/dL (3.4-5.0); Anion Gap 6 mmol/L (6-16); Blood Urea Nitrogen 7 mg/dL (8-24); Bun/Creatinine Ratio 11.7 (12.0-20.0); CO2, Blood 29 mmol/L (21-32); Calcium, Blood 7.6 mg/dL (8.5-10.1); Chloride, Blood 101 mmol/L (98-108); Glomerular Filtration Rate >60 (60-); Glucose, Blood 113 mg/dL (70-99); Magnesium, Blood 1.6 mg/dL (1.6-2.4); Phosphorus, Blood 2.5 mg/dL (2.5-4.9); Potassium, Blood 3.8 mmol/L (3.5-5.5); Sodium, Blood 136 mmol/L (136-145)
--- NOTE | 2020-02-19 15:13 | NUR ---
CALLED DR NAIDU- TELE CALLED PT FLIPPING BACK AND FORTH FROM AFIB IN THE 140'S TO NORMAL SINUS. PT HAS NO S&S OF DISTRESS AT THIS TIME. VITALS CHECKED. RECIEVED ORDER FOR PT TO STAY IN BED FOR THE NEXT 30 MINUTES AND STAT EKG.
--- NOTE | 2020-02-19 15:37 | NUR ---
EKG COMPLETED RESULTS PASSED TO BEDSIDE RN WHO CALLED DR NAIDU FOR FURTHER ORDERS. PT STILL ASYMPTOMATIC AT THIS TIME BEDSIDE RN WILL CONINUE TO MONITOR.
--- NOTE | 2020-02-19 19:25 | NUR ---
PT RESTING IN BED AND MAKES NO COMPLAINTS AT THIS TIME. LINE SL AND WNL. PT REMAINS ON TELE AMD AWAITING ECHO IN THE MORNING. PT WAS FRUSTRATED THAT HE WAS NOT DISCHARDED, BUT RECEPTIVE TO EDUCATION ON DC PLANNING. PT IS MED COMPLIAT AND ATE ALL OF HIS MEALS. STAFF WILL CONT. TO MONITOR.
[2020-02-20 05:11] LABS: BASOPHILS ABSOLUTE AUTO 0.05 K/mm3 (0.00-0.23); BASOPHILS PERCENT AUTO 1 % (0-2); EOSINOPHILS ABSOLUTE AUTO 0.18 K/mm3 (0.00-0.68); EOSINOPHILS PERCENT AUTO 4 % (0-6); Hematocrit 33.8 % (37.0-53.0); Hemoglobin 11.2 g/dL (13.5-17.5); IMMATURE GRAN ABSOLUTE AUTO 0.03 K/mm3 (0.00-0.10); IMMATURE GRAN PERCENT AUTO 1 % (0-1); LYMPHOCYTES ABSOLUTE AUTO 0.82 K/mm3 (0.84-5.20); LYMPHOCYTES PERCENT AUTO 17 % (21-46); MONOCYTES ABSOLUTE AUTO 0.76 K/mm3 (0.16-1.47); MONOCYTES PERCENT AUTO 15 % (4-13); Mean Corpuscular HGB 36.5 pg (26.0-34.0); Mean Corpuscular HGB Conc 33.1 g/dL (31.5-36.5); Mean Corpuscular Volume 110 fL (80-100); Mean Platelet Volume 9.5 fL (9.1-12.4); NEUTROPHILS PERCENT AUTO 63 % (41-73); Platelet Count 85 K/mm3 (150-400); RDW Coefficient Variation 25.3 % (11.7-14.2); RDW Standard Deviation 102.5 fL (35.1-46.3); Red Blood Cell Count 3.07 M/mm3 (4.30-5.90); White Blood Cell Count 4.94 K/mm3 (4.00-11.30)
[2020-02-20 05:34] LABS: Albumin, Blood 2.4 g/dL (3.4-5.0); Anion Gap 5 mmol/L (6-16); Blood Urea Nitrogen 8 mg/dL (8-24); Bun/Creatinine Ratio 12.8 (12.0-20.0); CO2, Blood 29 mmol/L (21-32); Calcium, Blood 7.6 mg/dL (8.5-10.1); Chloride, Blood 105 mmol/L (98-108); Creatinine, Blood 0.62 mg/dL (0.60-1.20); Glomerular Filtration Rate >60 (60-); Glucose, Blood 84 mg/dL (70-99); Magnesium, Blood 1.6 mg/dL (1.6-2.4); Phosphorus, Blood 1.8 mg/dL (2.5-4.9); Potassium, Blood 3.8 mmol/L (3.5-5.5); Sodium, Blood 139 mmol/L (136-145)
--- NOTE | 2020-02-20 06:11 | NUR ---
SHIFT SUMMARY PATIENT ALERT AND ORIENTED. HAD NO COMPLAINTS OF CHEST PAIN OR SHORTNESS OF BREATH. PATIENT CONVERTED INTO AND OUT OF AFIB, ONCE AROUND 0118, AND ONCE AROUND 0545. PATIENT WAS ASYMPTOMATIC BOTH TIMES. NO OTHER ISSUES OVERNIGHT. IV PATENT AND FLUSHED. BED IN LOWEST POSITION WITH WHEELS LOCKED. CALL LIGHT WITHIN REACH. REPORT GIVEN TO ONCOMING RN.
--- NOTE | 2020-02-20 13:22 | NUR ---
PT WAS DISCHARGED AMBULATORY WITH BELONGINGS AND DC PAPERWORK AT SIDE. PT IV WAS DC'S AND WNL. EDUCATION WAS PROVIDED ON FU APPOINTMENTS MADE AND SS TO WATCH OUT FOR. PATIENT WAS ALERT AND ORIENTED UPON DC AND MADE NO C/O PAIN OR SOB.
== END 2020-02-20 12:27 | disposition home or self-care (01) | DRG 897 ==
LOC: ER 19:09 → PCU 19:11 → MEDS 02-18 15:47
PROVIDERS: Emergency Medicine; Family Medicine; Physician Assistant; ADMIT Internal Medicine
DX: F10.20 Alcohol dependence, uncomplicated (principal); D61.818 Other pancytopenia; I48.0 Paroxysmal atrial fibrillation; E87.6 Hypokalemia; E83.39 Other disorders of phosphorus metabolism; E83.42 Hypomagnesemia; K70.30 Alcoholic cirrhosis of liver without ascites; R93.89 Abnormal findings on diagnostic imaging of other specified body structures; E88.09 Other disorders of plasma-protein metabolism, not elsewhere classified; D64.89 Other specified anemias; D69.6 Thrombocytopenia, unspecified; E86.0 Dehydration
CPT/HCPCS: 36415; 71045; 71260; 80053; 80069; 82272; 83735; 84443; 85014; 85018; 85025; 85610; 85730; 86850; 86900; 86901; 93005; 93010; 93308; 93321; 96365; 96366; 96367; 96368; 96375; 96376; 99285-25; A9270; C9113; G0378; G0480; J0780; J2354; J3411; J3475; J3480; J7030; J7050; J7060; P9046; Q9967

== ENCOUNTER 2020-03-21 09:08 | Emergency (ER) | payer MEDICARE ==
[~2020-03-21] VITALS: Ht 177.8 cm; Wt 72.6 kg
== END 2020-03-21 10:24 | disposition home or self-care (01) ==
LOC: ER 09:08
DX: Z46.82 Encounter for fitting and adjustment of non-vascular catheter (principal); Z88.1 Allergy status to other antibiotic agents; Z79.899 Other long term (current) drug therapy; F17.200 Nicotine dependence, unspecified, uncomplicated
CPT/HCPCS: 71046

== ENCOUNTER 2020-04-20 12:33 | Emergency (ER) | payer MEDICARE ==
[~2020-04-20] VITALS: Ht 175.3 cm; Wt 72.6 kg
[2020-04-20 13:15] LABS: BASOPHILS ABSOLUTE AUTO 0.05 K/mm3 (0.00-0.23); BASOPHILS PERCENT AUTO 2 % (0-2); EOSINOPHILS ABSOLUTE AUTO 0.07 K/mm3 (0.00-0.68); EOSINOPHILS PERCENT AUTO 2 % (0-6); Hematocrit 47.7 % (37.0-53.0); Hemoglobin 15.8 g/dL (13.5-17.5); IMMATURE GRAN PERCENT AUTO 0 % (0-1); LYMPHOCYTES ABSOLUTE AUTO 1.17 K/mm3 (0.84-5.20); LYMPHOCYTES PERCENT AUTO 37 % (21-46); MONOCYTES ABSOLUTE AUTO 0.48 K/mm3 (0.16-1.47); MONOCYTES PERCENT AUTO 15 % (4-13); Mean Corpuscular HGB 34.6 pg (26.0-34.0); Mean Corpuscular HGB Conc 33.1 g/dL (31.5-36.5); Mean Corpuscular Volume 104 fL (80-100); Mean Platelet Volume 10.3 fL (9.1-12.4); NEUTROPHILS ABSOLUTE AUTO 1.38 K/mm3 (1.96-9.15); NEUTROPHILS PERCENT AUTO 44 % (41-73); Platelet Count 100 K/mm3 (150-400); RDW Coefficient Variation 14.2 % (11.7-14.2); RDW Standard Deviation 55.3 fL (35.1-46.3); Red Blood Cell Count 4.57 M/mm3 (4.30-5.90); White Blood Cell Count 3.15 K/mm3 (4.00-11.30)
[2020-04-20 13:36] LABS: Alanine Aminotransfer (ALT/SGP 32 U/L (12-78); Albumin/Globulin Ratio 0.4 (0.8-1.8); Alk Phos 201 U/L (50-136); Anion Gap 10 mmol/L (6-16); Aspartate Aminotrans (AST/SGOT 140 U/L (12-37); Bilirubin, Total 3.5 mg/dL (0.1-1.0); Blood Urea Nitrogen 5 mg/dL (8-24); Bun/Creatinine Ratio 5.7 (12.0-20.0); CO2, Blood 26 mmol/L (21-32); Calcium, Blood 9.1 mg/dL (8.5-10.1); Chloride, Blood 104 mmol/L (98-108); Creatinine, Blood 0.87 mg/dL (0.60-1.20); Globulin, Blood 8.2 g/dL (2.2-4.0); Glomerular Filtration Rate >60 (60-); Glucose, Blood 102 mg/dL (70-99); Potassium, Blood 2.9 mmol/L (3.5-5.5); Sodium, Blood 140 mmol/L (136-145); Total Protein, Blood 11.2 g/dL (6.4-8.2); Troponin I <0.015 ng/mL (0.000-0.040)
[2020-04-20 14:56] LABS: Source, Urine Clean Catch
[2020-04-20 15:02] LABS: Appearance, Urine Clear (Clear); Blood, Urine 3+ (Neg); Color, Urine Yellow (P-Yellow); Glucose Qualitative, Urine Neg (Neg); Ketones, Urine Neg (Neg); Leukocyte Esterase, Urine 1+ (Neg); Nitrite, Urine Neg (Neg); Protein, Urine 2+ (Neg); Specific Gravity, Urine 1.005 (1.003-1.022); Urobilinogen, Urine 3+ (Normal)
[2020-04-20 15:20] LABS: Bilirubin, Urine 1+ (Neg)
[2020-04-20 15:22] LABS: Bacteria Few /hpf; Squamous Epithelial Cells Few /hpf (Few)
[2020-04-20] MEDS ORDERED: Bactrim Ds Tab1 EACH PO (16:26)
[2020-04-20] MEDS ORDERED: HYDROCODONE-AC1 EA10 PO (16:26)
== END 2020-04-20 17:12 | disposition home or self-care (01) ==
LOC: ER 12:33
PROVIDERS: Physician Assistant
DX: N20.0 Calculus of kidney (principal); N39.0 Urinary tract infection, site not specified; E87.6 Hypokalemia; E83.42 Hypomagnesemia; F17.210 Nicotine dependence, cigarettes, uncomplicated
CPT/HCPCS: 71045; 74176; 80053; 81001; 83735; 84484; 85025; 87086; 93005; 93010; 96374; 96375; 96376; 99284-25; A9270; J1170; J2405; J7030

== ENCOUNTER 2020-05-17 09:00 | Inpatient (IN) | payer MEDICARE ==
[~2020-05-17] VITALS: Ht 175.3 cm; Wt 77.7 kg
[~2020-05-17 09:00] MED LIST changes: +Bactrim Ds Tab1 EACH PO; +HYDROCODONE-AC1 EA10 PO
[2020-05-17 10:02] LABS: BASOPHILS ABSOLUTE AUTO 0.04 K/mm3 (0.00-0.23); BASOPHILS PERCENT AUTO 1 % (0-2); EOSINOPHILS ABSOLUTE AUTO 0.04 K/mm3 (0.00-0.68); EOSINOPHILS PERCENT AUTO 1 % (0-6); Hematocrit 32.7 % (37.0-53.0); Hemoglobin 11.6 g/dL (13.5-17.5); IMMATURE GRAN ABSOLUTE AUTO 0.04 K/mm3 (0.00-0.10); IMMATURE GRAN PERCENT AUTO 1 % (0-1); LYMPHOCYTES ABSOLUTE AUTO 0.38 K/mm3 (0.84-5.20); LYMPHOCYTES PERCENT AUTO 9 % (21-46); MONOCYTES ABSOLUTE AUTO 0.79 K/mm3 (0.16-1.47); MONOCYTES PERCENT AUTO 18 % (4-13); Mean Corpuscular HGB Conc 35.5 g/dL (31.5-36.5); Mean Corpuscular Volume 99 fL (80-100); Mean Platelet Volume 9.7 fL (9.1-12.4); NEUTROPHILS ABSOLUTE AUTO 3.05 K/mm3 (1.96-9.15); NEUTROPHILS PERCENT AUTO 70 % (41-73); Platelet Count 106 K/mm3 (150-400); RDW Coefficient Variation 21.5 % (11.7-14.2); RDW Standard Deviation 74.9 fL (35.1-46.3); Red Blood Cell Count 3.31 M/mm3 (4.30-5.90); White Blood Cell Count 4.34 K/mm3 (4.00-11.30)
[2020-05-17 10:20] LABS: Alanine Aminotransfer (ALT/SGP 85 U/L (12-78); Albumin, Blood 2.4 g/dL (3.4-5.0); Albumin/Globulin Ratio 0.4 (0.8-1.8); Alk Phos 300 U/L (50-136); Anion Gap 8 mmol/L (6-16); Aspartate Aminotrans (AST/SGOT 278 U/L (12-37); Bilirubin, Total 11.1 mg/dL (0.1-1.0); Blood Urea Nitrogen 8 mg/dL (8-24); Bun/Creatinine Ratio 11.4 (12.0-20.0); CO2, Blood 27 mmol/L (21-32); Calcium, Blood 8.2 mg/dL (8.5-10.1); Chloride, Blood 92 mmol/L (98-108); Globulin, Blood 6.5 g/dL (2.2-4.0); Glomerular Filtration Rate >60 (60-); Glucose, Blood 97 mg/dL (70-99); Potassium, Blood 2.8 mmol/L (3.5-5.5); Sodium, Blood 127 mmol/L (136-145); Total Protein, Blood 8.9 g/dL (6.4-8.2); Troponin I <0.015 ng/mL (0.000-0.040)
[2020-05-17 10:26] LABS: Magnesium, Blood 1.3 mg/dL (1.6-2.4)
[2020-05-17 11:44] LABS: Source, Urine Clean Catch
[2020-05-17 11:49] LABS: Appearance, Urine Clear (Clear); Blood, Urine 1+ (Neg); Color, Urine Amber (P-Yellow); Glucose Qualitative, Urine Neg (Neg); Ketones, Urine 1+ (Neg); Leukocyte Esterase, Urine 1+ (Neg); Nitrite, Urine Neg (Neg); Protein, Urine 1+ (Neg); Urobilinogen, Urine 4+ (Normal)
[2020-05-17 12:15] LABS: Bilirubin, Urine 3+ (Neg)
[2020-05-17 12:17] LABS: Bacteria Few /hpf; Red Blood Cells, Urine 0-2 /hpf (0-2); Squamous Epithelial Cells Few /hpf (Few); White Blood Cells, Urine 0-2 /hpf (0-5)
[2020-05-17] MEDS ORDERED: MAGNESIUM OXID500 MG PO (13:21)
[2020-05-17] MEDS ORDERED: OMEP20ER PO (13:21)
[2020-05-17] MEDS ORDERED: METO25 PO (13:22)
[2020-05-17] MEDS ORDERED: POTASSIUM PHOSPH1 GM PO (13:22)
[2020-05-17] MEDS ORDERED: ALBU90OI INH (13:28)
[2020-05-17] MEDS ORDERED: ANORO ELLIPTA1 EACH INH (13:28)
[2020-05-17 13:46] LABS: International Normalized Ratio 1.4; Prothrombin Time Results 14.7 Sec (9.7-11.5)
--- NOTE | 2020-05-17 17:26 | NUR ---
PT ADMIT AT 1500 TO PCU 2. ABLE TO STAND AND TRANSFER FROM ER [facility]. VITAL SIGNS STABLE. TELE SHOWING SINUS TACH WITH HR 100-110'S. DENIES CHEST PAIN. COMPLAINS OF SOME "LUNG AND BELLY PAIN". MEDICATED PER EMAR WITH GOOD RELIEF. IV FLUIDS INFUSING. ON 2 L O2 VIA NASAL CANNULA SATING 94-95%. CIWA 1-2. STATES HE DRINKS ABOUT "1 PINT OF VODKA PER DAY" AND THAT HE HAS NEVER GONE THROUGH WITHDRAWL. HARD OF HEARING. UPPER AND LOWER DENTURES IN PLACE. GLASSES WITH PATIENT. SLIGHT JAUNDICE NOTED. DISTENDED ABDOMEN, PLAN FOR PARACENTESIS TOMORROW. LUNGS SOUNDING COURSE WITH OCCASIONAL NONPRODUCTIVE COUGH. SCD'S IN PLACE. SKIN CLEAN AND DRY. ABRASION/SCABS ON LEFT RODRIGUEZ. EDUCATED LOW VOLTAGE TECHNICIAN LIGHT, SAFETY AND ORIENTED TO UNIT. WILL CONTINUE TO MONITOR.
[2020-05-18 03:54] LABS: BASOPHILS ABSOLUTE AUTO 0.06 K/mm3 (0.00-0.23); BASOPHILS PERCENT AUTO 1 % (0-2); EOSINOPHILS ABSOLUTE AUTO 0.16 K/mm3 (0.00-0.68); EOSINOPHILS PERCENT AUTO 4 % (0-6); Hematocrit 27.9 % (37.0-53.0); Hemoglobin 9.7 g/dL (13.5-17.5); IMMATURE GRAN ABSOLUTE AUTO 0.04 K/mm3 (0.00-0.10); IMMATURE GRAN PERCENT AUTO 1 % (0-1); LYMPHOCYTES ABSOLUTE AUTO 0.63 K/mm3 (0.84-5.20); LYMPHOCYTES PERCENT AUTO 14 % (21-46); MONOCYTES ABSOLUTE AUTO 0.91 K/mm3 (0.16-1.47); MONOCYTES PERCENT AUTO 20 % (4-13); Mean Corpuscular HGB 35.3 pg (26.0-34.0); Mean Corpuscular HGB Conc 34.8 g/dL (31.5-36.5); Mean Corpuscular Volume 102 fL (80-100); Mean Platelet Volume 9.9 fL (9.1-12.4); NEUTROPHILS ABSOLUTE AUTO 2.68 K/mm3 (1.96-9.15); NEUTROPHILS PERCENT AUTO 60 % (41-73); Platelet Count 84 K/mm3 (150-400); RDW Standard Deviation 79.2 fL (35.1-46.3); Red Blood Cell Count 2.75 M/mm3 (4.30-5.90); White Blood Cell Count 4.48 K/mm3 (4.00-11.30)
[2020-05-18 04:17] LABS: Magnesium, Blood 1.8 mg/dL (1.6-2.4)
[2020-05-18 04:22] LABS: Alanine Aminotransfer (ALT/SGP 60 U/L (12-78); Albumin, Blood 1.7 g/dL (3.4-5.0); Albumin/Globulin Ratio 0.3 (0.8-1.8); Alk Phos 186 U/L (50-136); Anion Gap 4 mmol/L (6-16); Aspartate Aminotrans (AST/SGOT 185 U/L (12-37); Bilirubin, Total 9.1 mg/dL (0.1-1.0); Blood Urea Nitrogen 7 mg/dL (8-24); Bun/Creatinine Ratio 11.5 (12.0-20.0); CO2, Blood 30 mmol/L (21-32); Calcium, Blood 7.4 mg/dL (8.5-10.1); Chloride, Blood 96 mmol/L (98-108); Creatinine, Blood 0.61 mg/dL (0.60-1.20); Glomerular Filtration Rate >60 (60-); Glucose, Blood 94 mg/dL (70-99); Potassium, Blood 3.7 mmol/L (3.5-5.5); Sodium, Blood 130 mmol/L (136-145)
[2020-05-18 05:20] LABS: Total Protein, Blood 6.7 g/dL (6.4-8.2)
--- NOTE | 2020-05-18 05:38 | NUR ---
shift summary pt rested well through night. alert and oriented, able to make needs known. cooperative with plan of care. tele nsr. sats >90% on 2lnc (at home baseline).voiding adequately, no bm. ciwas 0, 0, 0. some pain and discomfort in abd - planning for paracentesis today. am labs imrpoved from yesterday. vss. call light witin reach, bed in lowest position. will continue to monitor.
[2020-05-18 12:22] LABS: Glucose, Body Fluid 100 mg/dL
[2020-05-18 12:23] LABS: Albumin, Body Fluid 0.1 g/dL
[2020-05-18 12:30] LABS: Automated BF WBC Count 0.107 K/mm3 (0-999); Body Fluid WBC Count 107 /mm3 (0-999)
[2020-05-18 12:37] LABS: pH, Body Fluid 7.5
[2020-05-18 12:44] LABS: Protein, Body Fluid 0.5 g/dL
[2020-05-18 12:56] LABS: RBC Count, Body Fluid 70 /mm3 (0-0)
[2020-05-18 13:05] LABS: Appearance, Body Fluid Clear (Clear); Color, Body Fluid L Yellow (None-Yellow); Total Cell Count, Body Fluid 100
--- NOTE | 2020-05-18 14:05 | NUR ---
PARACENTISIS PT HAD A PARACENTESIS COMPLETED THIS MORNING AND 2.9L OF FLUID WAS REMOVED FROM THE ABDOMEN. PT IS TO HAVE AN ALBUMIN INFUSION 100ml OF 25% HUMAN ALBUMIN. PT REPORTED NAUSEA AND VOMITING THIS MORNING BUT DENIES ANY NAUSEA NOW THAT THE ACITIES HAS BEEN LESSENED. PT RESTING IN BED AT THIS TIME
--- NOTE | 2020-05-18 18:37 | NUR ---
SHIFT SUMMARY VS STABLE, PT ON 2L O2 VIA NC WHICH IS HIS BASELINE. PT WAS VERY NAUSEATED THIS MORNING BUT THAT CLEARED FOLLOWING THE PARACENTISIS HE HAD LATE MORNING IN WHICH 2.9L OF ACITIES WAS REMOVED. PT IS SBA IN THE ROOM. PT HAS BEEN VERY PLEASANT AND HAS HAD A LOT OF CONTACT WITH HIS FAMILY TODAY. CIWA SCORES HAVE REMAINED 0, PT'S LAST DRINK WAS 05/17/20. PT IS RESTING IN BED AT THIS TIME
--- NOTE | 2020-05-19 05:12 | NUR ---
shift summary pt rested throughout night, alert and oriented, able to make needs known and is cooperative with plan of care. sats >90% on 2lnc (baseline at home), tele nsr. does c/o of some chest and abd pain. states his abd pain is much better after paracentesis. no c/o nausea. voiding to urinal, no bm. vss. call light within reach, bed in lowest position. will continue to monitor.
--- NOTE | 2020-05-19 08:00 | NUR ---
IV INFILTRATED PHARMACY NOTIFIED. INSTRUCTED TO WRAP AND APPLY ICE TO SITE. IV REMOVED. PT REPORTS NO PAIN.
--- NOTE | 2020-05-19 08:20 | NUR ---
PERMISSION TO PROVIDE CARE PATIENT PERMISSION TO PROVIDE CARE 05/19/20.
[2020-05-19 09:05] LABS: Alanine Aminotransfer (ALT/SGP 57 U/L (12-78); Albumin, Blood 2.1 g/dL (3.4-5.0); Albumin/Globulin Ratio 0.4 (0.8-1.8); Alk Phos 184 U/L (50-136); Anion Gap 4 mmol/L (6-16); Aspartate Aminotrans (AST/SGOT 163 U/L (12-37); Bilirubin, Total 9.9 mg/dL (0.1-1.0); Blood Urea Nitrogen 15 mg/dL (8-24); Bun/Creatinine Ratio 21.7 (12.0-20.0); CO2, Blood 28 mmol/L (21-32); Calcium, Blood 8.2 mg/dL (8.5-10.1); Chloride, Blood 100 mmol/L (98-108); Creatinine, Blood 0.69 mg/dL (0.60-1.20); Globulin, Blood 5.2 g/dL (2.2-4.0); Glomerular Filtration Rate >60 (60-); Glucose, Blood 88 mg/dL (70-99); Potassium, Blood 4.5 mmol/L (3.5-5.5); Sodium, Blood 132 mmol/L (136-145); Total Protein, Blood 7.3 g/dL (6.4-8.2)
--- NOTE | 2020-05-19 13:10 | NUR ---
PT VOMITING PT BEGAN TO VOMIT. MEDICATION GIVEN PER EMAR. PT ABLE TO HANDLE SECRETIONS ON OWN. SUCTION SET UP AT BEDSIDE.
--- NOTE | 2020-05-19 17:27 | NUR ---
UPDATE PT BEGAN VOMITTING BLOOD. PHYSICIAN NOTIFIED BY CORONER. VS STABLE. MAP ABOVE 65. ZOFRAN GIVEN. SEE EMAR. ORDERS PROVIDED. SEE EHR.
[2020-05-19 18:02] LABS: Hematocrit 25.5 % (37.0-53.0); Hemoglobin 8.6 g/dL (13.5-17.5)
--- NOTE | 2020-05-19 18:15 | NUR ---
REPORT GIVEN REPORT GIVEN TO ASHUTOSH, BULB SORTER AT BEDSIDE. PT BELONGINGS BROUGHT WITH PT BY BED WITH ANIMAL ASSISTANT AND LOCAL AREA NETWORK SYSTEMS ADMINSTRATOR.
--- NOTE | 2020-05-19 18:33 | NUR ---
PT'S DAUGHTER UPDATED PT'S DAUGHTER CALLED REGARDING AN UPDATE ABOUT THE PT. INFORMED OF PT'S STATUS CHANGE AND ROOM CHANGE TO ICU 12. PT TO CALL ICU NURSE THIS EVENING FOR UPDATE.
--- NOTE | 2020-05-19 18:34 | NUR ---
transfer Pt arrived to ICU 12 from PCU for EGD with anesthesia. REport received from ANA Salazar. Pt alert and oriented, lungs clear, on 2l/nc. Abdomen distended. pt only had 1 IV in LA, powerglide palced in RA by ANA Carroll. EGD team setting up currently. Pt has not had any more emesis since arrival. Continue to monitor.
--- NOTE | 2020-05-19 18:56 | NUR ---
05/19/20 1856 Loren Barragan History, Chart, Medications and Allergies reviewed before start of procedure.Patient confirms NPO status and agrees with scheduled surgery.HURRICAINE SPRAY TO OROPHARYX.Bite Block PlacedSee Anesthesia record
[2020-05-19 20:06] LABS: Hematocrit 23.4 % (37.0-53.0); Hemoglobin 7.8 g/dL (13.5-17.5)
--- NOTE | 2020-05-19 21:08 | NUR ---
PATIENT HAD UPPER GI FINISHING AT 1925 WITH DOCTOR NIMA AND DOCTOR CASSANDRA ANESTHESIA . BANDING 3 ACTIVE BLEEDING VARICES. PATIENT AWAKENING EASILY COUGHING AND SPITTING UP THICK BLACK SPUTUM/EMESIS FROM BACK OF THROAT. BIOX 88-90% ON 2L/NC TITRATED UP TO 5L/OXY AND UDN TX GIVEN DUE TO EXP WHEEZES T/O. BIOX NOW 98% ON 5L/OXY. HOLDING PO MEDS TONIGHT AND STARTING PROTONIX AND SANDOSTATIN DRIPS. WILL MONITOR H&H Q6 PLAN TO TRANSFUSE PRBC IF HGB LESS THAN 7.5.
[2020-05-19 23:27] LABS: Hematocrit 22.6 % (37.0-53.0); Hemoglobin 7.5 g/dL (13.5-17.5)
--- NOTE | 2020-05-20 00:18 | NUR ---
PATIENT HYPOTENSIVE, AWAKE WITH NO C/O DIZZINESS OR NAUSEA. H&H DRAWN WITH HGB 7.5. 1 UNIT PRBC STARTED.
[2020-05-20 05:54] LABS: Hematocrit 24.7 % (37.0-53.0); Hemoglobin 8.3 g/dL (13.5-17.5)
[2020-05-20 06:09] LABS: Alanine Aminotransfer (ALT/SGP 47 U/L (12-78); Albumin, Blood 1.8 g/dL (3.4-5.0); Albumin/Globulin Ratio 0.4 (0.8-1.8); Alk Phos 166 U/L (50-136); Anion Gap 5 mmol/L (6-16); Aspartate Aminotrans (AST/SGOT 126 U/L (12-37); Bilirubin, Total 8.4 mg/dL (0.1-1.0); Blood Urea Nitrogen 28 mg/dL (8-24); Bun/Creatinine Ratio 34.9 (12.0-20.0); CO2, Blood 26 mmol/L (21-32); Chloride, Blood 105 mmol/L (98-108); Globulin, Blood 4.4 g/dL (2.2-4.0); Glomerular Filtration Rate >60 (60-); Glucose, Blood 101 mg/dL (70-99); Potassium, Blood 5.8 mmol/L (3.5-5.5); Sodium, Blood 136 mmol/L (136-145); Total Protein, Blood 6.2 g/dL (6.4-8.2)
--- NOTE | 2020-05-20 06:40 | NUR ---
SUMMARY PATIENT AWAKE H&H STABLE, NO FURTHER SIGNS OF BLEEDING T/O NIGHT. PROTONIX AND SANDOSTATIN DRIPS CONTINUE. COREEN FEW ICE CHIPS DURING THE NIGHT PATIENT UP TO RECLINER CHAIR, C/O BACK PAIN FROM BEING IN BED. PATIENT COREEN TRANSFER TO CHAIR WELL. OXYGEN CONTINUES 5L/OXY. ABD CONTINUES TO BE ROUND AND FIRM. PATIENT VOIDING DARK BALDO/ORANGE URINE IN URINAL WITHOUT DIFFICULTY.
--- NOTE | 2020-05-20 08:44 | NUR ---
CARE ASSUMED OF PT AT 0700. PT SBA FROM CHAIR TO BED. PT SLEEPING NOW, VERY DROWSY, AWAKENS TO VOICE AND QUICKLY DRIFTS BACK TO SLEEP. PO MEDS HELD PT STRICT NPO FOLLOWING EGD FOR BLEEDINF VARICIES; S/P BANDING. NO ACTIVE SIGNS OF BLEEDING. VSS. DR HERRING IN THIS AM, GIVEN UPDATE. SANDOSTATIN AND PROTONIX GTT INFUSING. PT IS AN EVERYDAY DRINKER; CIWA 0.
[2020-05-20 11:11] LABS: Hematocrit 24.9 % (37.0-53.0); Hemoglobin 8.3 g/dL (13.5-17.5)
--- NOTE | 2020-05-20 11:30 | NUR ---
Brief visit with patient he is painful and constipated. States his daughte is working today and wont be in Will call her to review his need and discuss code status with them both.
--- NOTE | 2020-05-20 11:43 | NUR ---
PT ASSISTED TO TOILET, PT THOUGH HE NEEDED TO HAVE A BM, PT DID NOT PASS ANYTHING. PT ASSISTED BACK TO BED. 1100 H&H UNCHANGED FROM THIS AM'S H&H.
--- NOTE | 2020-05-20 12:32 | NUR ---
PT C/O PAIN 08/15 TO ABD, STATING ITS HIS USUAL ASCITIES PAIN. DR HERRING CALLED AND GIVEN UPDATE; OKAY FOR PT TO START CLEAR LIQUIDS AND RESUME PO MEDS. OXYCODONE PO GIVEN TO PT FOR PAIN. O2 SATS HAVE BEEN >96% ON 3L VIA OXYMIXER. PT SWITCHED TO N/C AT 3L AND SATURATING WELL.
--- NOTE | 2020-05-20 16:16 | NUR ---
PT DANGLING AT SIDE OF BED. GRANDDAUGHTER AT BEDSIDE. DR GALLARDO AT BEDSIDE WELL. FULL UPDATE GIVEN TO MD. OXYCODONE TO BE GIVEN FOR ABD PAIN 07/16. PT TOLERATING O2 AT 2L VIA N/C.
--- NOTE | 2020-05-20 16:57 | NUR ---
PT SITTING UP IN BED PLAYING CARDS, HEART RATE UP TO 147; PT HAD JUST RECEIVED UDN, BP STABLE. DR GALLARDO CALLED AND NOTIFIED. LOPRESSOR 12.5MG PO GIVEN.
--- NOTE | 2020-05-20 18:36 | NUR ---
Spiritual care note: Mr. Park is non-caodaism, but appeared to enjoy companionship. He told me about the loss of his son many years ago. He also spoke about the of his 23 years ago. [place] [facility] [facility] [place] He clearly has suffered enormous loss. He responded well to emotional affirmation and gentle bereavement cruise counselor. He will benefit from on-going eotional support. He loves is dtr and feels well-loved and supported. I will continue to visit as schedule permits.
--- NOTE | 2020-05-20 19:00 | NUR ---
ASSUMED CARE NOTE: ASSUMED CARE OF PT AT 1900, RECEVIED REPORT FORM ANAM RN. PT IS ALERT AND ORIENTEDX3. CIWA SCORE OF 9 CURRENTLY, VISIBLE BILAT HAD TREMORS, AND ANXIOUS, ALONG WITH SLIGHT AGITATION. PT DENIES NAUSEA,VOMITING, HALLUCINATION, HEADACHE. PT IS ON 2L OF O2 VIA NC, SPO2 ABOVE 90% BECOMES SOB WITH ACTIVITY. PT IN SINUS TACH WITH HR BETWEEN 100-110. BP STABLE. PT STS HE HAS 5/10 PAIN TO ABDOMEN AND LUNGS. PT GIVEN PAIN MEDS PER EMAR. ABDOMEN IS FIRM AND DISTENDED. PT C/O CONSTIPATION, MEDS GIVEN PER EMAR. PT USING URINAL AT BEDSIDE INDEPENDENTLY. PT REPOSITIONS SELF FROM SIDE TO SIDE C/O DIFFICULTY. WILL CONTINUE TO MONITOR PT T/O SHIFT.
--- NOTE | 2020-05-21 04:55 | NUR ---
UPDATE: PT WENT INTO AFIB WITH RVR, HR IN THE 140-150'S. CALLED . ORDERS TO INFUSE 500ML OF NS BOLUS GIVEN WELL CALCIUM TO REDUCE K+ LEVEL.
--- NOTE | 2020-05-21 05:44 | NUR ---
CALLED REGARDING HR OF 150-160. SBP 80, MAP 65, ORDERS FOR STAT LABS AND ANOTHER 500ML, NS BOLUS TO BE GIVEN
[2020-05-21 05:55] LABS: BASOPHILS ABSOLUTE AUTO 0.07 K/mm3 (0.00-0.23); BASOPHILS PERCENT AUTO 1 % (0-2); EOSINOPHILS ABSOLUTE AUTO 0.22 K/mm3 (0.00-0.68); EOSINOPHILS PERCENT AUTO 4 % (0-6); Hematocrit 23.5 % (37.0-53.0); Hemoglobin 7.7 g/dL (13.5-17.5); IMMATURE GRAN ABSOLUTE AUTO 0.05 K/mm3 (0.00-0.10); IMMATURE GRAN PERCENT AUTO 1 % (0-1); LYMPHOCYTES ABSOLUTE AUTO 0.54 K/mm3 (0.84-5.20); LYMPHOCYTES PERCENT AUTO 9 % (21-46); MONOCYTES ABSOLUTE AUTO 1.02 K/mm3 (0.16-1.47); MONOCYTES PERCENT AUTO 17 % (4-13); Mean Corpuscular HGB 34.5 pg (26.0-34.0); Mean Corpuscular HGB Conc 32.8 g/dL (31.5-36.5); Mean Corpuscular Volume 105 fL (80-100); Mean Platelet Volume 9.4 fL (9.1-12.4); NEUTROPHILS ABSOLUTE AUTO 3.97 K/mm3 (1.96-9.15); NEUTROPHILS PERCENT AUTO 68 % (41-73); Platelet Count 101 K/mm3 (150-400); RDW Coefficient Variation 26.9 % (11.7-14.2); RDW Standard Deviation 97.2 fL (35.1-46.3); Red Blood Cell Count 2.23 M/mm3 (4.30-5.90); White Blood Cell Count 5.87 K/mm3 (4.00-11.30)
--- NOTE | 2020-05-21 06:08 | NUR ---
CALLED REGARDING ELEVATED HR IN THE 170. ORDERS FOR LOPRESSOR 5MG IV NOW.
[2020-05-21 06:14] LABS: Albumin, Blood 1.8 g/dL (3.4-5.0); Anion Gap 4 mmol/L (6-16); Blood Urea Nitrogen 24 mg/dL (8-24); Bun/Creatinine Ratio 28.5 (12.0-20.0); CO2, Blood 27 mmol/L (21-32); Calcium, Blood 8.1 mg/dL (8.5-10.1); Chloride, Blood 107 mmol/L (98-108); Creatinine, Blood 0.84 mg/dL (0.60-1.20); Glomerular Filtration Rate >60 (60-); Glucose, Blood 92 mg/dL (70-99); Magnesium, Blood 1.7 mg/dL (1.6-2.4); Phosphorus, Blood 3.4 mg/dL (2.5-4.9); Potassium, Blood 4.2 mmol/L (3.5-5.5); Sodium, Blood 138 mmol/L (136-145)
--- NOTE | 2020-05-21 06:41 | NUR ---
SHIFT SUMMARY: SEE PREVIOUS NOTES. CALLED., REGARDING ELEVATED HR 140'S-150'S. PHYSICAN ORDERING DIGOXIN. WILL CONTINUE TO MONITOR. PT HAS BEEN IN AFIB WITH RVR FOR THE LAST TWO HOURS. SBP 90-100. 1L OF NS GIVEN PER DR. NAIDU WITH LITTLE TO NO EFFECT ON BP. PT DENIES SOB/DIZZINESS AT THIS TIME. PT HAS BEEN ON 2L OF 02 VIA NC, SPO2 AT 90% PT HAS BEEN HAVING MOIST COUGH, SMALL AMOUNTS OF THIN YELLOW SECRETIONS. ABDOMEN CONTINUES TO BE DISTENDED, NO BM THIS SHIFT. PT USING URNIAL AT BEDSIDE, TEA COLORED URINE NOTED. CIWA SCORES HAVE BEEN 0-8. WILL CONTINUE TO MONITOR PT UNTIL REPORT IS GIVEN TO ONCOMING SHIFT.
--- NOTE | 2020-05-21 07:34 | NUR ---
CARE ASSUMED OF PT AT 0700. PT SLEEPING, AROUSES TO VOICE, OX3. C/O ABD PAIN 03/18. PT IN AFIB W RVR RATE 130-170, HYPOTENSIVE, PT DENIES C/O CP, SOB, DIZZINESS. DIGOXIN ORDERED AND GIVEN; SHORTLY AFTER PT CONVERTED TO SINUS RYTHYM W RATE 100-110, BP IMPROVED. PT W SCATTERED INSP/EXP WHEEZES T/O; RT CALLED FOR TREATMENT. PT CONT TO HAVE NO SIGNS OF ACTIVE BLEEDING.
--- NOTE | 2020-05-21 08:34 | NUR ---
PT SBA TO COMMODE; PT PASSED MED HARD STOOL W SOME BLACK SOFTER STOOL. PT UP IN RECLINER EATING BREAKFAST NOW.
[2020-05-21 09:05] LABS: Alanine Aminotransfer (ALT/SGP 51 U/L (12-78); Albumin, Blood 1.8 g/dL (3.4-5.0); Albumin/Globulin Ratio 0.4 (0.8-1.8); Alk Phos 124 U/L (50-136); Anion Gap 3 mmol/L (6-16); Aspartate Aminotrans (AST/SGOT 154 U/L (12-37); Bilirubin, Total 9.2 mg/dL (0.1-1.0); Blood Urea Nitrogen 23 mg/dL (8-24); Bun/Creatinine Ratio 26.7 (12.0-20.0); CO2, Blood 27 mmol/L (21-32); Calcium, Blood 8.2 mg/dL (8.5-10.1); Chloride, Blood 108 mmol/L (98-108); Creatinine, Blood 0.86 mg/dL (0.60-1.20); Globulin, Blood 4.3 g/dL (2.2-4.0); Glomerular Filtration Rate >60 (60-); Glucose, Blood 92 mg/dL (70-99); Potassium, Blood 4.5 mmol/L (3.5-5.5); Sodium, Blood 138 mmol/L (136-145); Total Protein, Blood 6.1 g/dL (6.4-8.2)
--- NOTE | 2020-05-21 12:26 | NUR ---
DR HERRING IN TO SEE PT; GIVEN FULL UPDATE. OK TO ADVANCE DIET TO CLEARS, OKAY TO CHANGE STATUS PER DR GALLARDO. LASGHULAM HELD THIS AM D/T SOME HYPOTENSION W MAPS >65. DR HERRING WOULD LIKE EITHER PO OR IV LASIX WHEN PRESSURES IMPROVE TO HELP W ASCITIES; WILL RELAY TO DR GALLARDO.
--- NOTE | 2020-05-21 14:02 | NUR ---
DR GALLARDO IN; GIVEN UPDATE. DR GALLARDO MAY SCHEDULE PT FOR THERAPEUTIC PARACENTESIS. PT NOW MED STATUS W TELE.
--- NOTE | 2020-05-21 16:14 | NUR ---
BEDSIDE ULTRASOUND DID NOT SHOW ENOUGH FLUID TO TAP PER TECH/RADIOLOGIST. RADIOLOGIST STATES THE DISTENSION IS MOSTLY AIR IN BOWEL.
--- NOTE | 2020-05-21 16:45 | NUR ---
Met with Diego in his room this evening. He reports that he is feeling better today. He isn't currently having any more bleeding from his varicies at this time. He may have a paracentesis tomorrow but he is unsure if this will happen. He reports he had a paracentesis in the past several years ago. He admits that he has a lot on his mind and needs to consider his options for cancer treatment. He states that surgery isn't an option for him and that Dr. Penaloza can do radiation and chemo treatments once he is feeling better and has been discharged from the hospital. He states he is unsure how he feels about the cancer treatment at this time. Broached the subject of code status with Diego. He states that he has talked with his dtr, Viviana, about it but that he needs to do more thinking before he is ready to make any decisions re: his code status. Offered to have the conversation with Viviana present if that would be helpful to him. He states that he might consider that. He states Viviana has a toddler at home and her life is quite busy. Will allow him to rest and think about his options for treatment for now. PC to follow up with Diego and possibly Viviana as well re: code status and advanced care planning in the next day or so. Diego voiced no requests at this time.
--- NOTE | 2020-05-21 18:10 | NUR ---
Spiritual care note: Provided supportive visit to Mr. Khan. He says he feels a bit worse today and is very tired. He spoke about his dtr and his love for her. He admits he is fearful for his future and he's uncertain what will happen next. Offered assurance of help with options and continued support. Residential Advisor services will remain available.
--- NOTE | 2020-05-21 18:30 | NUR ---
REPORT GIVEN TO MED FLOOR RN. PT TRANSFERED TO MEDICAL FLOOR IN STABLE CONDITION VIA WHEELCHAIR.
--- NOTE | 2020-05-21 23:15 | NUR ---
LATE NOTE: At 2019, the bus driver/monitor notified this RN that this patient had converted to A Fib in the 140-150's. Upon checking the patient, he was found to be asymptomatic. Blood pressure 1 hour after midodrine was given was 111/69. Evening hospitalist was informed, then while still speaking with him, the semiconductor development technician called to say he had converted to a sinus tach in the 110's. Hospitalist wrote a provisional order for the patient to receive 10mg Cardizem IV Push if he reconverts to AFib. So far, patient remains in Sinus Tach 100-110's. will continue closely monitoring for changes in rhythm or rate.
--- NOTE | 2020-05-22 05:05 | NUR ---
ACCOUNTANT MACHINE PROCESSING SUMMARY Patient alert and oriented X3-4. Minimal c/o abdominal pain overnight. Dominic did take one 5mg oxycodone for 4/10 abdominal pain at 0200 which was resolved within 30 minutes. No continuation of serial H&H was ordered upon transfer from ICU. Will notify hospitalist to get order. Patient had 3-4 medium black dark blood tinged stools overnight. Urine remains dark tea colored as expected. Continuous fluids of Sandostatin and protonix as well as zosyn ran overnight without difficulty. Patient had brief episode of A fib with rapid ventricular response which resolved spontaneously without returning over night.
[2020-05-22 06:25] LABS: Hematocrit 24.6 % (37.0-53.0); Mean Corpuscular HGB 34.9 pg (26.0-34.0); Mean Corpuscular HGB Conc 32.5 g/dL (31.5-36.5); Mean Corpuscular Volume 107 fL (80-100); Mean Platelet Volume 8.8 fL (9.1-12.4); NRBC ABSOLUTE 0.02 K/mm3 (0.00-0.02); NRBC Auto 0.3 /100 WBC (0.0-0.2); Platelet Count 99 K/mm3 (150-400); RDW Coefficient Variation 26.9 % (11.7-14.2); RDW Standard Deviation 102.6 fL (35.1-46.3); Red Blood Cell Count 2.29 M/mm3 (4.30-5.90); White Blood Cell Count 5.82 K/mm3 (4.00-11.30)
--- NOTE | 2020-05-22 16:17 | NUR ---
PT IS A/OX3, JAUNDICE IN COLOR, PT IS PLEASANT AND COOPERATIVE, UP WITH MINIMAL ASSIST TO THE BSC, PT IS UNCOMFORTABLE DUE TO ABD DISTENTION, PT MEDICATED FOR PAIN X2 SO FAR TODAY, THE REPORTS PASSING GAS AND HAVING BM'S THAT HELPS RELIEVE SOME OF THE PAIN FOR A SHORT TIME, THE PT APPEARS TO BE BREATHING EASILY ON O2 @ 2L/MIN, THE PT HAS A DECREASED APPETITE, CALL IGHT I REACH, PT TRANSFERED TO ROOM 339 AT THIS TIME, WILL GIVE REPORT TO DEJUAN PEREZ
--- NOTE | 2020-05-22 18:12 | NUR ---
SHIFT SUMMARY PT TRANSFERRED TO THIS RN AT 1645. PT IS AOX4 AND ANXIOUS. PT MEDICATED FOR ABD PAIN. PT DENIES N/V, SOB, BUT DESATS WITH AMBULATION. PT IS ON TELEMETRY RUNNING SINUS TACH 106. APPETITE IS MODERATE. PROTONIX DRIP IS RUNNING. PT DID NOT HAVE VISITORS THIS RANDALL. PT IS IN ROOM, CALL LIGHT IN REACH, BED IN LOW POSITION.
--- NOTE | 2020-05-23 03:20 | NUR ---
SHIFT SUMMARY PATIENT HAD NO ACUTE CHANGES OBSERVED. AXOX 3 AND ONE ASSIST TO BSC. ON 3L O2 NC. VSS/AFEBRILE. REPORTED ABDOMINAL PAIN X ONE AND OXYCODONE 5 MG GIVEN PER EMAR. PIVS REMAIN INTACT. IV PROTONIX AND SANDOSTATIN CONTINUOUS INFUSING. IV ABX INFUSED. CIGARETTE PAPER TESTER REPORTS ST 110. RT IN FOR BREATHING TX. DENIES PAIN AND N/V. COOPERATIVE WITH CARE. CALL LIGHT IN REACH. BED IN LOWEST POSITION. WILL CONTINUE TO MONITOR UNTIL DAY SHIFT NURSE ASSUMES CARE.
[2020-05-23 05:46] LABS: BASOPHILS ABSOLUTE AUTO 0.04 K/mm3 (0.00-0.23); BASOPHILS PERCENT AUTO 0 % (0-2); EOSINOPHILS ABSOLUTE AUTO 0.08 K/mm3 (0.00-0.68); EOSINOPHILS PERCENT AUTO 1 % (0-6); Hematocrit 24.4 % (37.0-53.0); Hemoglobin 7.9 g/dL (13.5-17.5); Mean Corpuscular HGB 34.6 pg (26.0-34.0); Mean Corpuscular HGB Conc 32.4 g/dL (31.5-36.5); Mean Corpuscular Volume 107 fL (80-100); Mean Platelet Volume 9.5 fL (9.1-12.4); Platelet Count 88 K/mm3 (150-400); RDW Coefficient Variation 26.5 % (11.7-14.2); RDW Standard Deviation 101.9 fL (35.1-46.3); Red Blood Cell Count 2.28 M/mm3 (4.30-5.90); White Blood Cell Count 10.02 K/mm3 (4.00-11.30)
[2020-05-23 05:53] LABS: IMMATURE GRAN ABSOLUTE AUTO 0.09 K/mm3 (0.00-0.10); IMMATURE GRAN PERCENT AUTO 1 % (0-1); LYMPHOCYTES ABSOLUTE AUTO 0.41 K/mm3 (0.84-5.20); LYMPHOCYTES PERCENT AUTO 4 % (21-46); MONOCYTES ABSOLUTE AUTO 2.15 K/mm3 (0.16-1.47); MONOCYTES PERCENT AUTO 22 % (4-13); NEUTROPHILS ABSOLUTE AUTO 7.25 K/mm3 (1.96-9.15); NEUTROPHILS PERCENT AUTO 72 % (41-73)
[2020-05-23 06:04] LABS: Alanine Aminotransfer (ALT/SGP 55 U/L (12-78); Albumin, Blood 1.9 g/dL (3.4-5.0); Albumin/Globulin Ratio 0.4 (0.8-1.8); Alk Phos 121 U/L (50-136); Anion Gap 8 mmol/L (6-16); Aspartate Aminotrans (AST/SGOT 140 U/L (12-37); Bilirubin, Total 8.6 mg/dL (0.1-1.0); Blood Urea Nitrogen 11 mg/dL (8-24); Bun/Creatinine Ratio 15.4 (12.0-20.0); CO2, Blood 26 mmol/L (21-32); Chloride, Blood 102 mmol/L (98-108); Creatinine, Blood 0.72 mg/dL (0.60-1.20); Globulin, Blood 4.3 g/dL (2.2-4.0); Glomerular Filtration Rate >60 (60-); Glucose, Blood 150 mg/dL (70-99); Magnesium, Blood 1.4 mg/dL (1.6-2.4); Potassium, Blood 3.3 mmol/L (3.5-5.5); Sodium, Blood 136 mmol/L (136-145); Total Protein, Blood 6.2 g/dL (6.4-8.2)
--- NOTE | 2020-05-23 18:12 | NUR ---
SHIFT SUMMARY. A&OX4, PLEASANT AND COOPERATIVE WITH CARE. 1 ASSIST WITH FWW AND GB TO BATHROOM. PT CONTINUES WITH ASCITES AND JAUNDICED SKIN AND SCLERA. PT CONTINUES WITH ABD PAIN R/T ASCITES, PAIN MANAGED WELL WITH CURRENT ORDERS. PT REPORTS MILD SOB WITH EXERTION. NO N/V. PT PARTICIPATED WITH PT AND TOLERATED WELL. BROTHER IN TO VISIT TODAY. MAG AND K RIDER ALMOST DONE INFUSING. NO OTHER CHANGES OR CONCERNS.
--- NOTE | 2020-05-24 03:27 | NUR ---
SHIFT SUMMARY PATIENT HAD NO ACUTE CHANGES OBSERVED. AXOX 4 AND ONE ASSIST W/FWW AND GAIT BELT TO BR. JAUNDICE. POWERGLIDE RILEY INTACT. IV ABXS INFUSED. DENIES PAIN, SON, AND N/V. VSS/AFEBRILE. ON 3L O2 NC. COOPERATIVE WITH CARE. CALL LIGHT IN REACH. BED IN LOWEST POSITION. WILL CONTINUE TO MONITOR UNTIL DAY SHIFT NURSE ASSUMES CARE.
[2020-05-24 05:23] LABS: Hematocrit 24.4 % (37.0-53.0); Mean Corpuscular HGB 34.8 pg (26.0-34.0); Mean Corpuscular HGB Conc 32.8 g/dL (31.5-36.5); Mean Corpuscular Volume 106 fL (80-100); Mean Platelet Volume 9.2 fL (9.1-12.4); NRBC ABSOLUTE 0.02 K/mm3 (0.00-0.02); NRBC Auto 0.2 /100 WBC (0.0-0.2); Platelet Count 86 K/mm3 (150-400); RDW Coefficient Variation 26.2 % (11.7-14.2); White Blood Cell Count 10.04 K/mm3 (4.00-11.30)
[2020-05-24 05:44] LABS: Alanine Aminotransfer (ALT/SGP 47 U/L (12-78); Albumin, Blood 1.8 g/dL (3.4-5.0); Albumin/Globulin Ratio 0.4 (0.8-1.8); Alk Phos 122 U/L (50-136); Anion Gap 4 mmol/L (6-16); Aspartate Aminotrans (AST/SGOT 110 U/L (12-37); Blood Urea Nitrogen 10 mg/dL (8-24); Bun/Creatinine Ratio 14.5 (12.0-20.0); CO2, Blood 30 mmol/L (21-32); Calcium, Blood 7.7 mg/dL (8.5-10.1); Chloride, Blood 100 mmol/L (98-108); Creatinine, Blood 0.69 mg/dL (0.60-1.20); Globulin, Blood 4.5 g/dL (2.2-4.0); Glomerular Filtration Rate >60 (60-); Glucose, Blood 100 mg/dL (70-99); Magnesium, Blood 1.7 mg/dL (1.6-2.4); Potassium, Blood 3.4 mmol/L (3.5-5.5); Sodium, Blood 134 mmol/L (136-145); Total Protein, Blood 6.3 g/dL (6.4-8.2)
--- NOTE | 2020-05-24 18:12 | NUR ---
SHIFT SUMMARY. A&OX4, SBA TO BATHROOM, PLEASANT AND COOPERATIVE WITH CARE. PT'S JAUNDICE TO SKIN AND SCLERA APPEARS TO BE SOMEWHAT LIGHTENED WHEN COMPARED TO YESTERDAY. ASCITES STILL PRESNET. STILL WITH C/O ABD DISCOMFORT THAT HAS BEEN MANAGED WITH CURRENT ORDERS. NO N/V, SOB. CONTINUES WITH 2L O2 NC, LUNGS DIM IN THE BASES. DAUGHTER IN TO VISIT THIS AFTERNOON. NO NEW CHANGES OR CONCERNS.
--- NOTE | 2020-05-25 03:43 | NUR ---
SHIFT SUMMARY PATIENT HAD NO ACUTE CHANGES OBSERVED. AXOX 4 AND ONE ASSIST TO BATHROOM. JAUNDICE REDUCED TO SKIN/SCLERA SINCE LAST NOC SHIFT. ON 3L O2 NC. REPORTED ABDOMINAL PAIN X ONE AND OXYCODONE 5 MG GIVEN PER EMAR. RT IN FOR MULTIPLE BREATHING TX. VSS/AFEBRILE. IV ABXS INFUSED. PATIENT ABLE TO SLEEP MOST OF SHIFT. COOPERATIVE WITH CARE. CALL LIGHT IN REACH. BED IN LOWEST POSITION. WILL CONTINUE TO MONITOR UNTIL DAY SHIFT NURSE ASSUMES CARE.
[2020-05-25 05:00] LABS: BASOPHILS ABSOLUTE AUTO 0.04 K/mm3 (0.00-0.23); BASOPHILS PERCENT AUTO 1 % (0-2); EOSINOPHILS ABSOLUTE AUTO 0.25 K/mm3 (0.00-0.68); EOSINOPHILS PERCENT AUTO 3 % (0-6); Hemoglobin 8.3 g/dL (13.5-17.5); IMMATURE GRAN ABSOLUTE AUTO 0.06 K/mm3 (0.00-0.10); IMMATURE GRAN PERCENT AUTO 1 % (0-1); LYMPHOCYTES ABSOLUTE AUTO 0.69 K/mm3 (0.84-5.20); LYMPHOCYTES PERCENT AUTO 10 % (21-46); MONOCYTES ABSOLUTE AUTO 1.75 K/mm3 (0.16-1.47); MONOCYTES PERCENT AUTO 24 % (4-13); Mean Corpuscular HGB 35.5 pg (26.0-34.0); Mean Corpuscular HGB Conc 33.2 g/dL (31.5-36.5); Mean Corpuscular Volume 107 fL (80-100); Mean Platelet Volume 9.1 fL (9.1-12.4); NEUTROPHILS ABSOLUTE AUTO 4.49 K/mm3 (1.96-9.15); NEUTROPHILS PERCENT AUTO 62 % (41-73); Platelet Count 100 K/mm3 (150-400); RDW Coefficient Variation 25.3 % (11.7-14.2); RDW Standard Deviation 96.7 fL (35.1-46.3); Red Blood Cell Count 2.34 M/mm3 (4.30-5.90); White Blood Cell Count 7.28 K/mm3 (4.00-11.30)
[2020-05-25 05:21] LABS: Anion Gap 2 mmol/L (6-16); Blood Urea Nitrogen 11 mg/dL (8-24); Bun/Creatinine Ratio 16.1 (12.0-20.0); CO2, Blood 34 mmol/L (21-32); Calcium, Blood 7.7 mg/dL (8.5-10.1); Chloride, Blood 97 mmol/L (98-108); Creatinine, Blood 0.68 mg/dL (0.60-1.20); Glomerular Filtration Rate >60 (60-); Glucose, Blood 91 mg/dL (70-99); Potassium, Blood 3.7 mmol/L (3.5-5.5); Sodium, Blood 133 mmol/L (136-145)
[2020-05-25] MEDS ORDERED: PANT40 PO (11:13)
[2020-05-25] MEDS ORDERED: FURO40 PO (11:14)
[2020-05-25] MEDS ORDERED: DOCU100 PO (11:14)
[2020-05-25] MEDS ORDERED: MIDO5 PO (11:15)
[2020-05-25] MEDS ORDERED: OXYACE7.5T PO (11:16)
[2020-05-25] MEDS ORDERED: B-1100 M1 PO (11:17)
[2020-05-25] MEDS ORDERED: SPIR50 PO (11:17)
--- NOTE | 2020-05-25 15:41 | NUR ---
Patient discharged home. IV out. Discharge instructions given, explained and signed. Pt to follow up with PCP and Oncology. Home Health arranged for patient prior to discharge. Pt/family denied questions or concerns at discharge.
== END 2020-05-25 15:33 | disposition home health service (06) | DRG 853 ==
LOC: ER 09:00 → ICUW 13:26 → PCU 13:26 → ICUW 05-19 17:50 → MEDS 05-21 18:39 → ENPENDDIS 05-25 11:24 → MEDS 05-25 15:33
PROVIDERS: Emergency Medicine; Family Medicine; Internal Medicine; Internal Medicine Gastroenterology; Physician Assistant; ADMIT Internal Medicine
PROC: 0W9G3ZZ Drainage of Peritoneal Cavity, Percutaneous Approach (ICD-10-PCS; 2020-05-18)
PROC: 0D9 Gastrointestinal System, Drainage (ICD-10-PCS; principal; 2020-05-19 19:00)
PROC: 06L38CZ Occlusion of Esophageal Vein with Extraluminal Device, Via Natural or Artificial Opening Endoscopic (ICD-10-PCS; 2020-05-19 19:00)
PROC: 30233N1 Transfusion of Nonautologous Red Blood Cells into Peripheral Vein, Percutaneous Approach (ICD-10-PCS; 2020-05-20)
DX: A41.9 Sepsis, unspecified organism (principal); J18.9 Pneumonia, unspecified organism; I85.11 Secondary esophageal varices with bleeding; J69.0 Pneumonitis due to inhalation of food and vomit; C34.12 Malignant neoplasm of upper lobe, left bronchus or lung; I48.0 Paroxysmal atrial fibrillation; K70.31 Alcoholic cirrhosis of liver with ascites; J43.9 Emphysema, unspecified; D69.59 Other secondary thrombocytopenia; E83.42 Hypomagnesemia; K70.11 Alcoholic hepatitis with ascites; F10.20 Alcohol dependence, uncomplicated; F17.200 Nicotine dependence, unspecified, uncomplicated; E87.6 Hypokalemia; E87.5 Hyperkalemia; K59.00 Constipation, unspecified; I73.9 Peripheral vascular disease, unspecified; Z90.49 Acquired absence of other specified parts of digestive tract; Z98.890 Other specified postprocedural states; Z71.6 Tobacco abuse counseling; Z71.41 Alcohol abuse counseling and surveillance of alcoholic; Z88.1 Allergy status to other antibiotic agents; Z79.899 Other long term (current) drug therapy
CPT/HCPCS: 36415; 36430; 49083; 71045; 71260; 76705; 80048; 80053; 80069; 81001; 82042; 82140; 82607; 82746; 82945; 83605; 83735; 83880; 83986; 84100; 84145; 84157; 84484; 85014; 85018; 85025; 85027; 85610; 86140; 86850; 86900; 86901; 86923; 87040; 87070; 87086; 87205; 89051; 93005; 93010; 94640; 94660; 94667; 94760; 94762; 96365; 96366; 96368; 96372-59; 96375; 96376; 97110; 97116; 97161; 97530; 99285-25; A9270; A9270-GY; C1751; C9113; J0171; J0456; J0610; J0696; J1160; J1170; J1430; J1644; J1885; J1940; J2250; J2354; J2370; J2405; J2543; J2704; J2765; J3411; J3475; J3480; J7030; J7040; J7042; J7050; J7120; P9016; P9046; Q9967

== ENCOUNTER 2020-05-31 16:40 | Emergency (ER) | payer MEDICARE ==
[~2020-05-31] VITALS: Ht 177.8 cm; Wt 86.2 kg
[~2020-05-31 16:40] MED LIST changes: +ALBU90OI INH; +ANORO ELLIPTA1 EACH INH; +B-1100 M1 PO; +FURO40 PO; +MAGNESIUM OXID500 MG PO; +METO25 PO; +MIDO5 PO; +OMEP20ER PO; +OXYACE7.5T PO; +POTASSIUM PHOSPH1 GM PO; +SPIR50 PO
[2020-05-31 17:29] LABS: BASOPHILS ABSOLUTE AUTO 0.05 K/mm3 (0.00-0.23); BASOPHILS PERCENT AUTO 1 % (0-2); EOSINOPHILS ABSOLUTE AUTO 0.17 K/mm3 (0.00-0.68); EOSINOPHILS PERCENT AUTO 3 % (0-6); Hemoglobin 9.4 g/dL (13.5-17.5); IMMATURE GRAN ABSOLUTE AUTO 0.05 K/mm3 (0.00-0.10); IMMATURE GRAN PERCENT AUTO 1 % (0-1); LYMPHOCYTES ABSOLUTE AUTO 0.61 K/mm3 (0.84-5.20); LYMPHOCYTES PERCENT AUTO 11 % (21-46); MONOCYTES ABSOLUTE AUTO 0.93 K/mm3 (0.16-1.47); MONOCYTES PERCENT AUTO 17 % (4-13); Mean Corpuscular HGB 34.1 pg (26.0-34.0); Mean Corpuscular HGB Conc 32.4 g/dL (31.5-36.5); Mean Corpuscular Volume 105 fL (80-100); Mean Platelet Volume 9.2 fL (9.1-12.4); NEUTROPHILS ABSOLUTE AUTO 3.55 K/mm3 (1.96-9.15); NEUTROPHILS PERCENT AUTO 66 % (41-73); Platelet Count 133 K/mm3 (150-400); RDW Coefficient Variation 22.5 % (11.7-14.2); RDW Standard Deviation 87.4 fL (35.1-46.3); Red Blood Cell Count 2.76 M/mm3 (4.30-5.90); White Blood Cell Count 5.36 K/mm3 (4.00-11.30)
[2020-05-31 17:41] LABS: Ethanol (Alcohol), Blood, Med 93 mg/dL
[2020-05-31 17:51] LABS: PCO2 Arterial 38.2 mmHg (35-45); PO2 Arterial 72.8 mmHg (80-100); pH Blood Arterial 7.55 (7.35-7.45)
[2020-05-31 17:59] LABS: Alanine Aminotransfer (ALT/SGP 44 U/L (12-78); Albumin, Blood 2.1 g/dL (3.4-5.0); Albumin/Globulin Ratio 0.4 (0.8-1.8); Alk Phos 186 U/L (50-136); Anion Gap 6 mmol/L (6-16); Aspartate Aminotrans (AST/SGOT 103 U/L (12-37); Bilirubin, Total 5.3 mg/dL (0.1-1.0); Blood Urea Nitrogen 7 mg/dL (8-24); Bun/Creatinine Ratio 10.3 (12.0-20.0); CO2, Blood 32 mmol/L (21-32); Calcium, Blood 8.1 mg/dL (8.5-10.1); Chloride, Blood 95 mmol/L (98-108); Creatinine, Blood 0.68 mg/dL (0.60-1.20); Globulin, Blood 5.6 g/dL (2.2-4.0); Glomerular Filtration Rate >60 (60-); Glucose, Blood 132 mg/dL (70-99); Potassium, Blood 2.8 mmol/L (3.5-5.5); Sodium, Blood 133 mmol/L (136-145); Total Protein, Blood 7.7 g/dL (6.4-8.2)
== END 2020-05-31 19:10 | disposition home or self-care (01) ==
LOC: ER 16:40
PROVIDERS: Emergency Medicine; Physician Assistant
DX: T20.09XA Burn of unspecified degree of multiple sites of head, face, and neck, initial encounter (principal); K74.60 Unspecified cirrhosis of liver; F17.210 Nicotine dependence, cigarettes, uncomplicated; Z88.1 Allergy status to other antibiotic agents; Z79.899 Other long term (current) drug therapy; X08.8XXA Exposure to other specified smoke, fire and flames, initial encounter
CPT/HCPCS: 36415; 36600; 71045; 80053; 82803; 83690; 85025; 93005; 93010; 96374; 96376; 99284-25; A9270; G0480; J3010

== ENCOUNTER 2020-07-08 10:03 | Emergency (ER) | payer MEDICARE ==
[~2020-07-08] VITALS: Ht 175.3 cm; Wt 68.0 kg
[2020-07-08 11:06] LABS: BASOPHILS ABSOLUTE AUTO 0.03 K/mm3 (0.00-0.23); BASOPHILS PERCENT AUTO 1 % (0-2); EOSINOPHILS ABSOLUTE AUTO 0.07 K/mm3 (0.00-0.68); EOSINOPHILS PERCENT AUTO 2 % (0-6); Hematocrit 34.1 % (37.0-53.0); Hemoglobin 11.2 g/dL (13.5-17.5); IMMATURE GRAN ABSOLUTE AUTO 0.01 K/mm3 (0.00-0.10); IMMATURE GRAN PERCENT AUTO 0 % (0-1); LYMPHOCYTES ABSOLUTE AUTO 0.36 K/mm3 (0.84-5.20); LYMPHOCYTES PERCENT AUTO 10 % (21-46); MONOCYTES ABSOLUTE AUTO 0.77 K/mm3 (0.16-1.47); MONOCYTES PERCENT AUTO 21 % (4-13); Mean Corpuscular HGB Conc 32.8 g/dL (31.5-36.5); Mean Corpuscular Volume 97 fL (80-100); NEUTROPHILS ABSOLUTE AUTO 2.49 K/mm3 (1.96-9.15); NEUTROPHILS PERCENT AUTO 67 % (41-73); Platelet Count 112 K/mm3 (150-400); RDW Standard Deviation 67.7 fL (35.1-46.3); White Blood Cell Count 3.73 K/mm3 (4.00-11.30)
[2020-07-08 11:17] LABS: Alanine Aminotransfer (ALT/SGP 18 U/L (12-78); Albumin, Blood 2.6 g/dL (3.4-5.0); Albumin/Globulin Ratio 0.4 (0.8-1.8); Alk Phos 166 U/L (50-136); Anion Gap 8 mmol/L (6-16); Aspartate Aminotrans (AST/SGOT 39 U/L (12-37); Bilirubin, Total 4.6 mg/dL (0.1-1.0); Blood Urea Nitrogen 22 mg/dL (8-24); Bun/Creatinine Ratio 17.9 (12.0-20.0); CO2, Blood 24 mmol/L (21-32); Calcium, Blood 9.4 mg/dL (8.5-10.1); Chloride, Blood 96 mmol/L (98-108); Creatinine, Blood 1.23 mg/dL (0.60-1.20); Ethanol (Alcohol), Blood, Med <3 mg/dL; Globulin, Blood 6.4 g/dL (2.2-4.0); Glomerular Filtration Rate >60 (60-); Glucose, Blood 134 mg/dL (70-99); Potassium, Blood 3.9 mmol/L (3.5-5.5); Sodium, Blood 128 mmol/L (136-145)
[2020-07-08 12:15] LABS: Source, Urine Clean Catch
[2020-07-08 12:28] LABS: Bilirubin, Urine Neg (Neg); Blood, Urine Neg (Neg); Glucose Qualitative, Urine Neg (Neg); Ketones, Urine Neg (Neg); Leukocyte Esterase, Urine Neg (Neg); Nitrite, Urine Neg (Neg); Protein, Urine Neg (Neg); Urobilinogen, Urine NORM (Normal)
[2020-07-08 12:37] LABS: Appearance, Urine Clear (Clear); Color, Urine Yellow (P-Yellow)
[2020-07-08] MEDS ORDERED: Kristalose20 GM PO (13:20)
== END 2020-07-08 13:58 | disposition home or self-care (01) ==
LOC: ER 10:03
PROVIDERS: Emergency Medicine
DX: K70.40 Alcoholic hepatic failure without coma (principal); I48.91 Unspecified atrial fibrillation; Z88.1 Allergy status to other antibiotic agents; Z79.899 Other long term (current) drug therapy
CPT/HCPCS: 36415; 71046; 80053; 81003; 82140; 83690; 85025; 93005; 93010; 99284-25; G0480; J7030

== ENCOUNTER 2021-05-20 13:22 | Inpatient (IN) | payer MEDICARE ==
[~2021-05-20] VITALS: Ht 175.3 cm; Wt 78.9 kg
[~2021-05-20 13:22] MED LIST changes: +Kristalose20 GM PO
[2021-05-20 14:21] LABS: BASOPHILS ABSOLUTE AUTO 0.05 K/mm3 (0.00-0.23); BASOPHILS PERCENT AUTO 0 % (0-2); EOSINOPHILS ABSOLUTE AUTO 0.07 K/mm3 (0.00-0.68); EOSINOPHILS PERCENT AUTO 1 % (0-6); Hemoglobin 13.2 g/dL (13.5-17.5); IMMATURE GRAN ABSOLUTE AUTO 0.08 K/mm3 (0.00-0.10); IMMATURE GRAN PERCENT AUTO 1 % (0-1); LYMPHOCYTES ABSOLUTE AUTO 0.87 K/mm3 (0.84-5.20); LYMPHOCYTES PERCENT AUTO 6 % (21-46); MONOCYTES ABSOLUTE AUTO 1.55 K/mm3 (0.16-1.47); MONOCYTES PERCENT AUTO 11 % (4-13); Mean Corpuscular HGB Conc 32.2 g/dL (31.5-36.5); Mean Corpuscular Volume 99 fL (80-100); Mean Platelet Volume 10.8 fL (9.1-12.4); NEUTROPHILS ABSOLUTE AUTO 11.81 K/mm3 (1.96-9.15); NEUTROPHILS PERCENT AUTO 82 % (41-73); Platelet Count 116 K/mm3 (150-400); RDW Coefficient Variation 18.2 % (11.7-14.2); RDW Standard Deviation 65.3 fL (35.1-46.3); Red Blood Cell Count 4.13 M/mm3 (4.30-5.90); White Blood Cell Count 14.43 K/mm3 (4.00-11.30)
[2021-05-20 14:35] LABS: Calcium, Ionized (POC) 1.83 mmol/L (1.10-1.46); Chloride (POC) 72 mmol/L (98-108); Glucose (ISTAT POC) 102 mg/dL (70-99); Hemoglobin (POC) 13.6 g/dL (13.5-17.5); Potassium (POC) 2.4 mmol/L (3.5-5.5); Sodium (POC) 130 mmol/L (135-148); Total CO2 (POC) >50 mmol/L (21-32)
[2021-05-20 15:04] LABS: Alanine Aminotransfer (ALT/SGP 67 U/L (12-78); Albumin, Blood 2.8 g/dL (3.4-5.0); Albumin/Globulin Ratio 0.5 (0.8-1.8); Alk Phos 160 U/L (50-136); Aspartate Aminotrans (AST/SGOT 183 U/L (12-37); Blood Urea Nitrogen 31 mg/dL (8-24); Bun/Creatinine Ratio 17.3 (12.0-20.0); Chloride, Blood 76 mmol/L (98-108); Creatinine, Blood 1.79 mg/dL (0.60-1.20); Glomerular Filtration Rate 38 (60-); Glucose, Blood 105 mg/dL (70-99); Potassium, Blood 2.6 mmol/L (3.5-5.5); Sodium, Blood 129 mmol/L (136-145); Total Protein, Blood 8.8 g/dL (6.4-8.2)
[2021-05-20 15:06] LABS: Anion Gap Unable to Calculate mmol/L (6-16)
[2021-05-20 15:07] LABS: CO2, Blood >45 mmol/L (21-32)
[2021-05-20 16:32] LABS: PCO2 Arterial 55.3 mmHg (35-45); PO2 Arterial 60.5 mmHg (80-100)
[2021-05-20] MEDS ORDERED: ATORVASTATIN CA80 M1 PO (18:10)
[2021-05-20] MEDS ORDERED: [UNRECOGNIZED DRUG - OTHER] INH (18:12)
[2021-05-20] MEDS ORDERED: FUROSEMIDE40 MG PO (18:13)
[2021-05-20] MEDS ORDERED: Lopressor 25 mg25 MG PO (18:14)
[2021-05-20] MEDS ORDERED: PANT40 PO (18:15)
[2021-05-20] MEDS ORDERED: KLOR-CON 1010 ME1 PO (18:16)
[2021-05-20] MEDS ORDERED: Spiriva Respimat INH (18:18)
[2021-05-20] MEDS ORDERED: ANORO ELLIPTA1 EACH INH (18:19)
[2021-05-20 18:34] LABS: Albumin, Blood 2.4 g/dL (3.4-5.0); Anion Gap 3 mmol/L (6-16); Blood Urea Nitrogen 32 mg/dL (8-24); Bun/Creatinine Ratio 20.4 (12.0-20.0); CO2, Blood 45 mmol/L (21-32); Chloride, Blood 84 mmol/L (98-108); Creatinine, Blood 1.57 mg/dL (0.60-1.20); Glomerular Filtration Rate 44 (60-); Glucose, Blood 114 mg/dL (70-99); Phosphorus, Blood 1.7 mg/dL (2.5-4.9); Potassium, Blood 2.6 mmol/L (3.5-5.5); Sodium, Blood 132 mmol/L (136-145)
[2021-05-20 18:55] LABS: Calcium, Blood 14.4 mg/dL (8.5-10.1)
[2021-05-20 21:01] LABS: Albumin, Blood 2.3 g/dL (3.4-5.0); Anion Gap Unable to Calculate mmol/L (6-16); Blood Urea Nitrogen 33 mg/dL (8-24); Bun/Creatinine Ratio 23.1 (12.0-20.0); Calcium, Blood 14.2 mg/dL (8.5-10.1); Chloride, Blood 84 mmol/L (98-108); Creatinine, Blood 1.43 mg/dL (0.60-1.20); Glomerular Filtration Rate 49 (60-); Glucose, Blood 109 mg/dL (70-99); Magnesium, Blood 1.1 mg/dL (1.6-2.4); Phosphorus, Blood 1.5 mg/dL (2.5-4.9); Potassium, Blood 2.7 mmol/L (3.5-5.5); Sodium, Blood 134 mmol/L (136-145)
[2021-05-20 21:02] LABS: CO2, Blood >45 mmol/L (21-32)
--- NOTE | 2021-05-21 04:39 | NUR ---
SHIFT SUMMARY 70 YR M ADMITTED ON 05/20/21 FOR METABOLIC ACIDOSIS. FULL CODE. PT C/O ABDOMINAL PAIN AND DID PRODUCE A SMALL AMOUNT OF BROWN SPUTUM AT BEGINNING OF SHIFT. THIS SEEMS TO HAVE RESOLVED. HE IS NPO HE IS SCHEDULED TO HAVE A CAT SCAN OF HIS ABDOMEN IN THE AM TO RULE OUT GI BLEED. THIS SHIFT HE HAS RECEIVED SUPPEMENTAL POTASSIUM AND MAGNESIUM DUE TO LOW LEVELS. CALCIUM AND CO2 ARE LOW WELL. DR. WORTHINGTON IS AWARE OF CRITICAL LEVELS.
[2021-05-21 05:58] LABS: BASOPHILS ABSOLUTE AUTO 0.04 K/mm3 (0.00-0.23); BASOPHILS PERCENT AUTO 0 % (0-2); EOSINOPHILS ABSOLUTE AUTO 0.17 K/mm3 (0.00-0.68); EOSINOPHILS PERCENT AUTO 2 % (0-6); Hematocrit 34.8 % (37.0-53.0); Hemoglobin 11.1 g/dL (13.5-17.5); IMMATURE GRAN ABSOLUTE AUTO 0.08 K/mm3 (0.00-0.10); IMMATURE GRAN PERCENT AUTO 1 % (0-1); LYMPHOCYTES ABSOLUTE AUTO 0.81 K/mm3 (0.84-5.20); LYMPHOCYTES PERCENT AUTO 7 % (21-46); MONOCYTES ABSOLUTE AUTO 1.99 K/mm3 (0.16-1.47); MONOCYTES PERCENT AUTO 18 % (4-13); Mean Corpuscular HGB Conc 31.9 g/dL (31.5-36.5); Mean Corpuscular Volume 100 fL (80-100); Mean Platelet Volume 11.2 fL (9.1-12.4); NEUTROPHILS PERCENT AUTO 72 % (41-73); Platelet Count 81 K/mm3 (150-400); RDW Coefficient Variation 18.6 % (11.7-14.2); RDW Standard Deviation 68.8 fL (35.1-46.3); Red Blood Cell Count 3.47 M/mm3 (4.30-5.90); White Blood Cell Count 10.99 K/mm3 (4.00-11.30)
[2021-05-21 06:11] LABS: International Normalized Ratio 1.44; Prothrombin Time Results 14.8 Sec (9.7-11.5)
[2021-05-21 06:25] LABS: Magnesium, Blood 1.7 mg/dL (1.6-2.4)
[2021-05-21 06:33] LABS: Albumin, Blood 2.4 g/dL (3.4-5.0); Albumin/Globulin Ratio 0.5 (0.8-1.8); Bilirubin, Total 3.2 mg/dL (0.1-1.0); Bun/Creatinine Ratio 24.2 (12.0-20.0); Calcium, Blood 13.6 mg/dL (8.5-10.1); Creatinine, Blood 1.32 mg/dL (0.60-1.20); Phosphorus, Blood 1.2 mg/dL (2.5-4.9); Potassium, Blood 2.9 mmol/L (3.5-5.5); Total Protein, Blood 7.4 g/dL (6.4-8.2)
[2021-05-21 15:23] LABS: Albumin, Blood 2.5 g/dL (3.4-5.0); Anion Gap 2 mmol/L (6-16); Blood Urea Nitrogen 31 mg/dL (8-24); Bun/Creatinine Ratio 25.6 (12.0-20.0); CO2, Blood 42 mmol/L (21-32); Calcium, Blood 12.3 mg/dL (8.5-10.1); Chloride, Blood 91 mmol/L (98-108); Creatinine, Blood 1.21 mg/dL (0.60-1.20); Glomerular Filtration Rate 60 (60-); Glucose, Blood 106 mg/dL (70-99); Phosphorus, Blood 1.1 mg/dL (2.5-4.9); Potassium, Blood 3.1 mmol/L (3.5-5.5); Sodium, Blood 135 mmol/L (136-145)
[2021-05-21 15:38] LABS: Magnesium, Blood 1.1 mg/dL (1.6-2.4)
--- NOTE | 2021-05-21 16:38 | NUR ---
DAY SHIFT SUMMARY 70 YR OLD MALE PT ADMITTED DUE TO METABOLIC ALKALOSIS, PREVIOUSLY ON MEDICAL FLOOR IN ROOM 341 MOVED TO ROOM 349 DUE TO CONFUSION AND REPEATED SELF REMOVAL OF IV, PER REPORT. ONCE PT TRANSFERED TO THIS ROOM PT BECAME AGITATED AND STATED REPEATEDLY HE NEEDED TO LEAVE AND GET TO [employer] [facility] BEFORE TONIGHT OR HE WOULD BE IN TROUBLE. WHEN STAFF ATTEMPTED TO REDIRECT PT TO UNDERSTANDING HE IS IN THE HOSPITAL PT TRIED TO PULL O2 TUBING FROM WALL AND TRIED TO PUSH THROUGH STAFF TO LEAVE. PT MEDICATED PER MD ORDER AND PLACED IN LOREN HE IS NOT ABLE TO BE REDIRECTED AT THIS TIME. CALL LIGHT IS WITHIN REACH. PT IS MONITORED BY REMOTE CAMERA. FREQUENT ROUNDING ON PT. CRITICAL LAB OF 1.1 MAG, REPORTED TO DR WORTHINGTON WITH ORDERS PLACED. PT ON 2L O2 NC AND TELE OF SR AT 92.
--- NOTE | 2021-05-22 00:57 | NUR ---
PATIENT CONTINUES TO PULL AT WRIST RESTRAINTS AND OFF AT TIMES. ON CAMERA. IM ZYPREXA 5 MG GIVEN PER EMAR FOR AGITATION.
--- NOTE | 2021-05-22 05:03 | NUR ---
SHIFT SUMMARY PATIENT CONTINUES TO PULL AT LINES, CORDS, AND OXYGEN TUBING. RESTRAINTS PER ORDER. ON 2L O2 NC. ALERT TO SELF AND BEDREST. 24-HOUR URINE COLLECTION TO START 05:00. DR MICHAUD IN TO SEE PATIENT. ON CAMERA. IM ZYPREXA 5 MG GIVEN FOR INCREASED AGITATION WITHOUT EFFECTIVE RESULTS. PIV REMAINS INTACT. MULTIPLE IV PRODUCTS GIVEN PER EMAR. DENIES CHEST PAIN, SOB, AND N/V. VSS/AFEBRILE. CALL LIGHT IN REACH. BED IN LOWEST POSITION AND ALARM ACTIVATED. WILL CONTINUE TO MONITOR UNTIL DAY SHIFT NURSE ASSUMES CARE.
[2021-05-22 05:11] LABS: BASOPHILS ABSOLUTE AUTO 0.06 K/mm3 (0.00-0.23); BASOPHILS PERCENT AUTO 1 % (0-2); EOSINOPHILS ABSOLUTE AUTO 0.23 K/mm3 (0.00-0.68); EOSINOPHILS PERCENT AUTO 3 % (0-6); Hematocrit 33.5 % (37.0-53.0); Hemoglobin 10.8 g/dL (13.5-17.5); Mean Corpuscular HGB 32.4 pg (26.0-34.0); Mean Corpuscular HGB Conc 32.2 g/dL (31.5-36.5); Mean Corpuscular Volume 101 fL (80-100); Mean Platelet Volume 10.2 fL (9.1-12.4); Platelet Count 92 K/mm3 (150-400); RDW Coefficient Variation 18.8 % (11.7-14.2); RDW Standard Deviation 69.1 fL (35.1-46.3); Red Blood Cell Count 3.33 M/mm3 (4.30-5.90)
[2021-05-22 05:14] LABS: IMMATURE GRAN ABSOLUTE AUTO 0.03 K/mm3 (0.00-0.10); IMMATURE GRAN PERCENT AUTO 0 % (0-1); LYMPHOCYTES ABSOLUTE AUTO 0.68 K/mm3 (0.84-5.20); LYMPHOCYTES PERCENT AUTO 10 % (21-46); MONOCYTES PERCENT AUTO 24 % (4-13); NEUTROPHILS PERCENT AUTO 61 % (41-73)
[2021-05-22 05:51] LABS: Albumin, Blood 2.5 g/dL (3.4-5.0); Albumin/Globulin Ratio 0.5 (0.8-1.8); Bilirubin, Direct 1.6 mg/dL (0.0-0.3); Bilirubin, Indirect 1.7 mg/dL (0.1-0.7); Bilirubin, Total 3.3 mg/dL (0.1-1.0); Bun/Creatinine Ratio 22.8 (12.0-20.0); Calcium, Blood 10.8 mg/dL (8.5-10.1); Creatinine, Blood 1.27 mg/dL (0.60-1.20); Globulin, Blood 4.7 g/dL (2.2-4.0); Phosphorus, Blood 1.3 mg/dL (2.5-4.9); Potassium, Blood 2.9 mmol/L (3.5-5.5); Total Protein, Blood 7.2 g/dL (6.4-8.2)
[2021-05-22 05:55] LABS: Magnesium, Blood 1.1 mg/dL (1.6-2.4)
--- NOTE | 2021-05-22 10:58 | NUR ---
ADVANCE DIET TOLERATED RECEIVED V.O. FROM DR. MICHAUD TO ADVANCE DIET TOLERATED. ORDERS UPDATED. ADVANCED TO FULL LIQUID DIET.
--- NOTE | 2021-05-22 18:15 | NUR ---
Shift Summary A/Ox3 to place, self, and date/time. Intermittent confusion and hallucination, patient seeing and talking to a "girl sitting in the corner". R wrist restraint removed when eating with supervision. Camera also on, verified patient is visible. Patient tolerating full liquid diet and eating well, diet advanced to regular starting breakfast tomorrow. NS @ 75 mLs/hr and sandostatin @ 25 mLs/hr continuous. Restraints on to protect lines.
--- NOTE | 2021-05-23 04:50 | NUR ---
SHIFT SUMMARY 24-HOUR URINE COLLECTED AND SENT TO LAB BY 05:00. PATIENT HAD NO ACUTE CHANGES. AXO X2 AND BEDREST. PIV REMAINS INTACT. NS @ 75 mL/HR AND SANDOSTATIN @ 25 mL/HR INFUSING. RESTRAINTS PER ORDER TO PROTECT LINES AND CORDS. TELEMETRY NSR 95. ON 2L O2 NC. IV ABX INFUSED. DENIES CHEST PAIN, SOB, AND N/V. LOW GRADE TEMPERATURE RESOLVED. CALL LIGHT IN REACH. BED IN LOWEST POSITION AND ALARM ACTIVATED. WILL CONTINUE TO MONITOR UNTIL DAY SHIFT NURSE ASSUMES CARE.
[2021-05-23 04:51] LABS: BASOPHILS ABSOLUTE AUTO 0.07 K/mm3 (0.00-0.23); BASOPHILS PERCENT AUTO 1 % (0-2); EOSINOPHILS ABSOLUTE AUTO 0.35 K/mm3 (0.00-0.68); EOSINOPHILS PERCENT AUTO 5 % (0-6); Hemoglobin 10.2 g/dL (13.5-17.5); IMMATURE GRAN ABSOLUTE AUTO 0.07 K/mm3 (0.00-0.10); IMMATURE GRAN PERCENT AUTO 1 % (0-1); LYMPHOCYTES ABSOLUTE AUTO 0.88 K/mm3 (0.84-5.20); LYMPHOCYTES PERCENT AUTO 12 % (21-46); MONOCYTES ABSOLUTE AUTO 1.63 K/mm3 (0.16-1.47); MONOCYTES PERCENT AUTO 23 % (4-13); Mean Corpuscular HGB 32.3 pg (26.0-34.0); Mean Corpuscular HGB Conc 31.9 g/dL (31.5-36.5); Mean Corpuscular Volume 101 fL (80-100); Mean Platelet Volume 9.6 fL (9.1-12.4); NEUTROPHILS ABSOLUTE AUTO 4.22 K/mm3 (1.96-9.15); NEUTROPHILS PERCENT AUTO 58 % (41-73); Platelet Count 97 K/mm3 (150-400); RDW Coefficient Variation 18.6 % (11.7-14.2); RDW Standard Deviation 69.8 fL (35.1-46.3); Red Blood Cell Count 3.16 M/mm3 (4.30-5.90); White Blood Cell Count 7.22 K/mm3 (4.00-11.30)
[2021-05-23 05:22] LABS: Alanine Aminotransfer (ALT/SGP 87 U/L (12-78); Albumin, Blood 2.1 g/dL (3.4-5.0); Albumin/Globulin Ratio 0.5 (0.8-1.8); Alk Phos 101 U/L (50-136); Anion Gap 5 mmol/L (6-16); Aspartate Aminotrans (AST/SGOT 321 U/L (12-37); Bilirubin, Total 2.8 mg/dL (0.1-1.0); Blood Urea Nitrogen 23 mg/dL (8-24); Bun/Creatinine Ratio 21.3 (12.0-20.0); CO2, Blood 30 mmol/L (21-32); Chloride, Blood 101 mmol/L (98-108); Creatinine, Blood 1.08 mg/dL (0.60-1.20); Globulin, Blood 4.5 g/dL (2.2-4.0); Glomerular Filtration Rate >60 (60-); Glucose, Blood 101 mg/dL (70-99); Magnesium, Blood 0.9 mg/dL (1.6-2.4); Phosphorus, Blood 1.3 mg/dL (2.5-4.9); Potassium, Blood 3.1 mmol/L (3.5-5.5); Sodium, Blood 136 mmol/L (136-145); Total Protein, Blood 6.6 g/dL (6.4-8.2)
[2021-05-23 05:42] LABS: Calcium, Blood 8.6 mg/dL (8.5-10.1)
[2021-05-23 05:54] LABS: Protein, Urine Quantitative 25.5 mg/dL (0.0-11.9)
--- NOTE | 2021-05-23 17:15 | NUR ---
SHIFT SUMMARY PATIENT IS ALERT AND ORIENTED, NO CONFUSION OR PULLING AT LINES. RESTRAINTS DISCONTINUED THIS SHIFT. PATIENT'S IV'S HAVE BEEN INFILTRATING THIS SHIFT. UNABLE TO GIVE MEDS ACCORDING TO SCHEDULE. MD REHMAN NOTIFIED. SAMANTHA PEREZ FROM PCU IS ATTEMPTING A POWERGLIDE AT THIS TIME. PO LACTULOSE HELD PER MD REHMAN VERBAL ORDER. 4 LOOSE GREEN STOOLS. ABX DC'D. NO ACUTE CHANGES. THE PATIENT HAS BEEN CALLING APPROPRIATELY. BED IN LOWEST POSITION. CALL LIGHT WITHIN REACH.
--- NOTE | 2021-05-24 04:40 | NUR ---
SHIFT SUMMARY PATIENT MENTATION CONTINUES TO IMPROVE SINCE LAST NOC SHIFT. ABLE TO HAVE CONVERSATION. AXOX 3 USING URINAL AT BEDSIDE. POWERGLIDE RILEY. ON 3L O2 NC. NS @ 50 mL/HR AND SANDOSTATIN @ 25 mL/HR INFUSING. MULTIPLE IV FLUIDS INFUSED PER EMAR. DENIES CHEST PAIN, SOB, AND N/V. LOW GRADE TEMP 99.9. CALL LIGHT IN REACH. BED IN LOWEST POSITION. WILL CONTINUE TO MONITOR UNTIL DAY SHIFT NURSE ASSUMES CARE.
[2021-05-24 05:16] LABS: BASOPHILS ABSOLUTE AUTO 0.06 K/mm3 (0.00-0.23); BASOPHILS PERCENT AUTO 1 % (0-2); EOSINOPHILS ABSOLUTE AUTO 0.32 K/mm3 (0.00-0.68); EOSINOPHILS PERCENT AUTO 4 % (0-6); Hematocrit 29.5 % (37.0-53.0); Hemoglobin 9.6 g/dL (13.5-17.5); IMMATURE GRAN ABSOLUTE AUTO 0.08 K/mm3 (0.00-0.10); IMMATURE GRAN PERCENT AUTO 1 % (0-1); LYMPHOCYTES ABSOLUTE AUTO 0.75 K/mm3 (0.84-5.20); LYMPHOCYTES PERCENT AUTO 9 % (21-46); MONOCYTES ABSOLUTE AUTO 1.71 K/mm3 (0.16-1.47); MONOCYTES PERCENT AUTO 20 % (4-13); Mean Corpuscular HGB 33.1 pg (26.0-34.0); Mean Corpuscular HGB Conc 32.5 g/dL (31.5-36.5); Mean Corpuscular Volume 102 fL (80-100); Mean Platelet Volume 9.4 fL (9.1-12.4); NEUTROPHILS PERCENT AUTO 67 % (41-73); Platelet Count 103 K/mm3 (150-400); RDW Coefficient Variation 18.7 % (11.7-14.2); RDW Standard Deviation 69.3 fL (35.1-46.3); White Blood Cell Count 8.72 K/mm3 (4.00-11.30)
[2021-05-24 05:53] LABS: Alanine Aminotransfer (ALT/SGP 73 U/L (12-78); Albumin, Blood 1.9 g/dL (3.4-5.0); Albumin/Globulin Ratio 0.5 (0.8-1.8); Alk Phos 119 U/L (50-136); Anion Gap 5 mmol/L (6-16); Aspartate Aminotrans (AST/SGOT 212 U/L (12-37); Bilirubin, Total 1.9 mg/dL (0.1-1.0); Blood Urea Nitrogen 18 mg/dL (8-24); Bun/Creatinine Ratio 17.6 (12.0-20.0); CO2, Blood 27 mmol/L (21-32); Calcium, Blood 7.1 mg/dL (8.5-10.1); Chloride, Blood 105 mmol/L (98-108); Creatinine, Blood 1.02 mg/dL (0.60-1.20); Globulin, Blood 4.2 g/dL (2.2-4.0); Glomerular Filtration Rate >60 (60-); Glucose, Blood 114 mg/dL (70-99); Phosphorus, Blood 1.7 mg/dL (2.5-4.9); Potassium, Blood 3.2 mmol/L (3.5-5.5); Sodium, Blood 137 mmol/L (136-145); Total Protein, Blood 6.1 g/dL (6.4-8.2)
[2021-05-24 14:09] LABS: IMMUNOGLOBULIN A, QN, SERUM <5 mg/dL (61-437); IMMUNOGLOBULIN G, QN, SERUM 3373 mg/dL (603-1613); IMMUNOGLOBULIN M, QN, SERUM 136 mg/dL (20-172)
--- NOTE | 2021-05-24 17:53 | NUR ---
SHIFT SUMMARY THE PATIENT IAS ALERT AND ORIENTED X4, PLEASANT AND COOPERATIVE WITH CARE. PATIENT HAD CRITICAL MAG OF 1.0 THIS AM. ELECTROLYTE REPLACEMENT GIVEN THIS SHIFT. SANDOSTATIN INFUSING AT 25MLS/HR. NS INFUSING AT 50 MLS/HR. MIDLINE IN THE RILEY. PATIENT ON TELE SINUS RHYTHM. 3LPM OF O2. PATIENT WORKED WITH PT/OT THIS SHIFT. 1 STAFF ASSIST TO THE BATHROOM FWW. LACTULOSE HELD THIS AFTERNOON PER MD. NO ACUTE CHANGES. PLANS FOR POSSIBLE DISCHARGE TO SNF. CALL LIGHT WITHIN REACH. BED IN LOWEST POSITION.
--- NOTE | 2021-05-25 04:25 | NUR ---
SHIFT SUMMARY: PT IS ALERT AND ORIENTED. PT IS CALM AND COOPERATIVE WITH CARE. PT CALLS APPROPRIATELY. PT HAD SEVERAL BOWEL MOVEMENTS ON THE BED KNAPP, TARGET REACHED FOR THE DAY AND EVENING LACTULOSE HELD. PT DENIES PAIN, NAUSEA, VOMITING, AND SOB. 3 L O2 KEEPING SATS > 90%. PT SLEPT MUCH OF THE SHIFT. BED IN LOW POSITION, CALL LIGHT WITHIN REACH. WILL CONTINUE TO MONITOR.
[2021-05-25 04:57] LABS: Hematocrit 30.4 % (37.0-53.0); Hemoglobin 9.7 g/dL (13.5-17.5)
[2021-05-25 05:33] LABS: Anion Gap 4 mmol/L (6-16); Blood Urea Nitrogen 16 mg/dL (8-24); Bun/Creatinine Ratio 14.3 (12.0-20.0); CO2, Blood 25 mmol/L (21-32); Calcium, Blood 6.5 mg/dL (8.5-10.1); Chloride, Blood 108 mmol/L (98-108); Creatinine, Blood 1.12 mg/dL (0.60-1.20); Glomerular Filtration Rate >60 (60-); Glucose, Blood 113 mg/dL (70-99); Phosphorus, Blood 1.7 mg/dL (2.5-4.9); Potassium, Blood 3.8 mmol/L (3.5-5.5); Sodium, Blood 137 mmol/L (136-145)
[2021-05-25 05:37] LABS: Magnesium, Blood 0.9 mg/dL (1.6-2.4)
--- NOTE | 2021-05-25 07:27 | NUR ---
START OF SHIFT RECEIVED REPORT, ASSUMED CARE OF PT.
[2021-05-25 14:08] LABS: ANA DIRECT Positive (Negative); ANTI-CENTROMERE B ANTIBODIES <0.2 AI (0.0-0.9); ANTI-DNA (DS) AB QN <1 IU/mL (0-9); ANTI-JO-1 <0.2 AI (0.0-0.9); ANTICHROMATIN ANTIBODIES <0.2 AI (0.0-0.9); ANTIMYELOPEROXIDASE (MPO) ABS <9.0 U/mL (0.0-9.0); ANTIPROTEINASE 3 (PR-3) ABS <3.5 U/mL (0.0-3.5); ANTIRIBOSOMAL P ANTIBODIES <0.2 AI (0.0-0.9); ANTISCLERODERMA-70 ANTIBODIES 0.3 AI (0.0-0.9); ATYPICAL PANCA <1:20 titer (Neg:<1:20); CYTOPLASMIC (C-ANCA) <1:20 titer (Neg:<1:20); PERINUCLEAR (P-ANCA) <1:20 titer (Neg:<1:20); RNP ANTIBODIES 1.2 AI (0.0-0.9); SJOGREN'S ANTI-SS-A <0.2 AI (0.0-0.9); SJOGREN'S ANTI-SS-B <0.2 AI (0.0-0.9); SMITH ANTIBODIES <0.2 AI (0.0-0.9); SMITH/RNP ANTIBODIES <0.2 AI (0.0-0.9)
--- NOTE | 2021-05-25 18:33 | NUR ---
SHIFT SUMMARY A&O X 4. PT WORKED WITH PHYS THERAPY TODAY, AMBULATED IN HALLS WITH WALKER, STRONG, STEADY GAIT. PT HAS SINCE BEEN ABLE TO SAFELY INDEPENDENTLY AMBULATE TO BATHROOM THOUGH WILL USE CALL LIGHT APPROPRIATELY. PT HAS HAD 5-6 LOOSE BMs TODAY. HAD 1 DOSE OF LACTULOSE TODAY AT LUNCHTIME. VSS. PLAN IS POSSIBLE DC TO HOME TOMORROW PENDING ELECTROLYE LEVELS.
--- NOTE | 2021-05-25 23:00 | NUR ---
PT RESTING IN BED - DENIES ANY REQUESTS OR COMPLAINTS. FLUIDS AT BEDSIDE. BED IN LOW POSITION. CALL LIGHT WITHIN REACH.
[2021-05-26 05:00] LABS: Hematocrit 29.8 % (37.0-53.0); Hemoglobin 9.3 g/dL (13.5-17.5)
[2021-05-26 05:24] LABS: Anion Gap 5 mmol/L (6-16); Blood Urea Nitrogen 17 mg/dL (8-24); Bun/Creatinine Ratio 17.2 (12.0-20.0); CO2, Blood 22 mmol/L (21-32); Calcium, Blood 6.1 mg/dL (8.5-10.1); Chloride, Blood 111 mmol/L (98-108); Creatinine, Blood 0.99 mg/dL (0.60-1.20); Glomerular Filtration Rate >60 (60-); Glucose, Blood 128 mg/dL (70-99); Magnesium, Blood 1.3 mg/dL (1.6-2.4); Potassium, Blood 3.8 mmol/L (3.5-5.5); Sodium, Blood 138 mmol/L (136-145)
--- NOTE | 2021-05-26 05:46 | NUR ---
LEFT VOICE MESSAGE FOR DR. MCKEON - WILL REVIEW MAGNESIUM AND PHOSPHORUS LABS THIS AM.
--- NOTE | 2021-05-26 05:55 | NUR ---
SHIFT SUMMARY - NO ACUTE CHANGES THROUGHOUT THE NIGHT. PT DOES HAVE EXERTIONAL DYSPNEA - PT RECOVERS ONCE PT BACK INTO BED, AND PT USES PURSED LIP BREATHING. H&H IS TRENDING DOWNWARD. BM VISUALIZED THIS AM - LARGE, SOFT, YELLOW IN COLOR. PT DID HAVE A BLOODY NOSE THIS AM - SCANT AMOUNT. MAGNESIUM AND PHOSPHORUS LEVELS BELOW RANGE - CALL PLACED TO DR. MCKEON - . REVIEWED THESE LAB RESULTS WITH DU QUEZADA - AND REVIEWED KPHOS AND MAG OXIDE SCHEDULED FOR THIS AM - SHE RECOMMENDED CALLING DR. MCKEON. PT DENIED ANY COMPLAINTS OF PAIN, AND IS HOPEFUL THAT HE IS DISCHARGED HOME TODAY. CALL LIGHT WITHIN REACH. BED IN LOW POSITION. FLUIDS AT BEDSIDE.
[2021-05-26 07:11] LABS: ANTIGLOMERULAR BM AB 4 units (0-20)
--- NOTE | 2021-05-26 07:36 | NUR ---
START OF SHIFT RECEIVED REPORT, ASSUMED CARE OF PT.
[2021-05-26] MEDS ORDERED: BREZTRI AEROS10.7 GM INH (11:33)
[2021-05-26] MEDS ORDERED: SPIRIVA RESPIMAT4 G3 INH (11:41)
[2021-05-26] MEDS ORDERED: LACT10SY PO (11:44)
[2021-05-26] MEDS ORDERED: MAGNESIUM OXID500 MG PO (11:44)
[2021-05-26] MEDS ORDERED: K-Phos Origina500 MG PO (11:47)
[2021-05-26] MEDS ORDERED: Inderal 20 mg T20 MG PO (11:50)
[2021-05-26] MEDS ORDERED: SPIR25 PO (11:50)
--- NOTE | 2021-05-26 12:32 | NUR ---
DC HOME DC INSTRCUTIONS GIVEN WITH PT'S BROTHER AT BEDSIDE. ALL QUESTIONS & CONCERNS ANSWERED. POWER GLIDE DC'D WITH CATH TIP INTACT. SITE WNLs. ALL PERSONAL BELONGINGS SENT WITH PT. PT WHEELED OUT IN WHEEL CHAIR TO BROTHER'S CAR. ALL NEW MD ORDERED SCRIPTS FAXED TO PT'S PREFERRED PHARMACY, [facility].
[2021-05-27 15:10] LABS: M-SPIKE, % Not Observed % (Not Observed); PROTEIN,TOTAL,URINE <4.0 mg/dL (Not Estab.)
== END 2021-05-26 12:17 | disposition home or self-care (01) | DRG 432 ==
LOC: ER 13:22 → MEDS 17:00
PROVIDERS: Emergency Medicine; Internal Medicine; Internal Medicine Nephrology; Physician Assistant; ADMIT Family Medicine
PROC: HZ2ZZZZ Detoxification Services for Substance Abuse Treatment (ICD-10-PCS; principal; 2021-05-20)
DX: K70.30 Alcoholic cirrhosis of liver without ascites (principal); I85.11 Secondary esophageal varices with bleeding; E87.3 Alkalosis; N17.9 Acute kidney failure, unspecified; E87.1 Hypo-osmolality and hyponatremia; C34.92 Malignant neoplasm of unspecified part of left bronchus or lung; K72.90 Hepatic failure, unspecified without coma; D63.1 Anemia in chronic kidney disease; I12.9 Hypertensive chronic kidney disease with stage 1 through stage 4 chronic kidney disease, or unspecified chronic kidney disease; N18.9 Chronic kidney disease, unspecified; J44.9 Chronic obstructive pulmonary disease, unspecified; E78.5 Hyperlipidemia, unspecified; I73.9 Peripheral vascular disease, unspecified; E87.6 Hypokalemia; R11.2 Nausea with vomiting, unspecified; E83.42 Hypomagnesemia; E83.39 Other disorders of phosphorus metabolism; Z99.81 Dependence on supplemental oxygen; Z95.828 Presence of other vascular implants and grafts; Z90.49 Acquired absence of other specified parts of digestive tract; Z98.890 Other specified postprocedural states; Z88.1 Allergy status to other antibiotic agents; Z79.51 Long term (current) use of inhaled steroids; Z79.899 Other long term (current) drug therapy
CPT/HCPCS: 36415; 36600; 71045; 74177; 80047; 80053; 80069; 81050; 82040; 82140; 82164; 82248; 82306; 82330; 82550; 82803; 83516; 83520; 83690; 83735; 83970; 84100; 84156; 84166; 85014; 85018; 85025; 85610; 86037; 86038; 86334; 86850; 86900; 86901; 94640; 94664; 94760; 94762; 97116; 97162; 97165; 97530; 97535; 99284-25; A9270; C1751; C9113; G0480; J0630; J0744; J2354; J3411; J3475; J3480; J3489; J7030; J7040; J7050; J7060; Q9967

== ENCOUNTER → 2021-07-08 | Outpatient (CLI) | payer MEDICARE ==
[~2021-07-08] MED LIST changes: +ATORVASTATIN CA80 M1 PO; +BREZTRI AEROS10.7 GM INH; +FUROSEMIDE40 MG PO; +Inderal 20 mg T20 MG PO; +K-Phos Origina500 MG PO; +KLOR-CON 1010 ME1 PO; +Lopressor 25 mg25 MG PO; +SPIR25 PO; +SPIRIVA RESPIMAT4 G3 INH; +Spiriva Respimat INH; +[UNRECOGNIZED DRUG - OTHER] INH
[2021-07-08 14:01] LABS: Stool Occult Bld Immuno 1 Positive (NEGATIVE)
== END | disposition home or self-care (01) ==
LOC: LAB SHORT 06:30 → LAB 06:30
PROVIDERS: Family Medicine
DX: D50.9 Iron deficiency anemia, unspecified (principal)
CPT/HCPCS: 82274

== ENCOUNTER 2021-11-15 17:13 | Inpatient (IN) | payer MEDICARE ==
[~2021-11-15] VITALS: Ht 175.3 cm; Wt 81.7 kg
[2021-11-15 17:50] LABS: BASOPHILS ABSOLUTE AUTO 0.07 K/mm3 (0.00-0.23); BASOPHILS PERCENT AUTO 1 % (0-2); EOSINOPHILS ABSOLUTE AUTO 0.21 K/mm3 (0.00-0.68); EOSINOPHILS PERCENT AUTO 3 % (0-6); Hematocrit 35.4 % (37.0-53.0); Hemoglobin 12.6 g/dL (13.5-17.5); IMMATURE GRAN ABSOLUTE AUTO 0.05 K/mm3 (0.00-0.10); IMMATURE GRAN PERCENT AUTO 1 % (0-1); LYMPHOCYTES ABSOLUTE AUTO 0.76 K/mm3 (0.84-5.20); LYMPHOCYTES PERCENT AUTO 10 % (21-46); MONOCYTES ABSOLUTE AUTO 0.81 K/mm3 (0.16-1.47); MONOCYTES PERCENT AUTO 10 % (4-13); Mean Corpuscular HGB 38.7 pg (26.0-34.0); Mean Corpuscular HGB Conc 35.6 g/dL (31.5-36.5); Mean Corpuscular Volume 109 fL (80-100); Mean Platelet Volume 9.5 fL (9.1-12.4); NEUTROPHILS ABSOLUTE AUTO 6.02 K/mm3 (1.96-9.15); NEUTROPHILS PERCENT AUTO 76 % (41-73); Platelet Count 121 K/mm3 (150-400); RDW Coefficient Variation 23.9 % (11.7-14.2); Red Blood Cell Count 3.26 M/mm3 (4.30-5.90); White Blood Cell Count 7.92 K/mm3 (4.00-11.30)
[2021-11-15 18:17] LABS: Albumin, Blood 2.2 g/dL (3.4-5.0); Albumin/Globulin Ratio 0.4 (0.8-1.8); Bilirubin, Direct 13.4 mg/dL (0.0-0.3); Bilirubin, Indirect 5.1 mg/dL (0.1-0.7); Bilirubin, Total 18.5 mg/dL (0.1-1.0); Bun/Creatinine Ratio 18.6 (12.0-20.0); Calcium, Blood 9.1 mg/dL (8.5-10.1); Creatinine, Blood 1.13 mg/dL (0.60-1.20); Globulin, Blood 5.8 g/dL (2.2-4.0); Potassium, Blood 3.2 mmol/L (3.5-5.5)
[2021-11-15 19:41] LABS: Phosphorus, Blood 2.1 mg/dL (2.5-4.9)
[2021-11-15 19:51] LABS: Influenza A, PCR NEGATIVE (NEGATIVE); Influenza B, PCR NEGATIVE (NEGATIVE); Resp Syncytial Virus, PCR NEGATIVE (NEGATIVE); SARS-Cov-2 (COVID-19) PCR, MMC NEGATIVE (NEGATIVE)
[2021-11-15 22:23] LABS: Source, Urine Clean Catch
[2021-11-15 22:28] LABS: Blood, Urine 1+ (Neg); Color, Urine Amber (P-Yellow); Glucose Qualitative, Urine Neg (Neg); Ketones, Urine Neg (Neg); Leukocyte Esterase, Urine 1+ (Neg); Nitrite, Urine Pos (Neg); Protein, Urine 1+ (Neg); Specific Gravity, Urine 1.015 (1.003-1.022); Urobilinogen, Urine 4+ (Normal); pH, Urine 6.5 (5.0-8.0)
[2021-11-15 22:30] LABS: Appearance, Urine Hazy (Clear); Bilirubin, Urine 3+ (Neg)
[2021-11-15 23:13] LABS: Bacteria Mod /hpf; Hyaline Casts 0-2 /lpf (0-2); Red Blood Cells, Urine 0-2 /hpf (0-2); Squamous Epithelial Cells Rare /hpf (Few)
[2021-11-16 04:34] LABS: BASOPHILS ABSOLUTE AUTO 0.07 K/mm3 (0.00-0.23); BASOPHILS PERCENT AUTO 1 % (0-2); EOSINOPHILS ABSOLUTE AUTO 0.15 K/mm3 (0.00-0.68); EOSINOPHILS PERCENT AUTO 2 % (0-6); Hematocrit 33.9 % (37.0-53.0); Hemoglobin 11.8 g/dL (13.5-17.5); IMMATURE GRAN ABSOLUTE AUTO 0.06 K/mm3 (0.00-0.10); IMMATURE GRAN PERCENT AUTO 1 % (0-1); LYMPHOCYTES ABSOLUTE AUTO 0.63 K/mm3 (0.84-5.20); LYMPHOCYTES PERCENT AUTO 9 % (21-46); MONOCYTES PERCENT AUTO 14 % (4-13); Mean Corpuscular HGB 38.4 pg (26.0-34.0); Mean Corpuscular HGB Conc 34.8 g/dL (31.5-36.5); Mean Corpuscular Volume 110 fL (80-100); Mean Platelet Volume 10.2 fL (9.1-12.4); NEUTROPHILS ABSOLUTE AUTO 5.46 K/mm3 (1.96-9.15); NEUTROPHILS PERCENT AUTO 74 % (41-73); Platelet Count 118 K/mm3 (150-400); RDW Coefficient Variation 23.9 % (11.7-14.2); RDW Standard Deviation 95.5 fL (35.1-46.3); Red Blood Cell Count 3.07 M/mm3 (4.30-5.90); White Blood Cell Count 7.37 K/mm3 (4.00-11.30)
[2021-11-16 04:39] LABS: International Normalized Ratio 1.52; Prothrombin Time Results 15.5 Sec (9.7-11.5)
[2021-11-16 05:05] LABS: Albumin/Globulin Ratio 0.4 (0.8-1.8); Bilirubin, Total 17.8 mg/dL (0.1-1.0); Bun/Creatinine Ratio 18.8 (12.0-20.0); Calcium, Blood 8.3 mg/dL (8.5-10.1); Creatinine, Blood 0.85 mg/dL (0.60-1.20); Globulin, Blood 5.2 g/dL (2.2-4.0); Potassium, Blood 3.4 mmol/L (3.5-5.5); Total Protein, Blood 7.2 g/dL (6.4-8.2)
--- NOTE | 2021-11-16 06:14 | NUR ---
NEW ADMIT Patient admitted for abd/liver pain, reported chronic alcohol use, last drink 3 days ago. No signs of alcohol w/drawal noted. Pt reports feeling unsteady. Did not get patient OOB this shift. Tele ordered, NSR. NPO diet ordered. 1L NS infusing. Patient admitted with home meds inside a pill organizer, placed pt label on box and took meds to Pharmacy. Vitals stable, saturations stable on 5lpm, pt states this is baseline. IV albumin infusing, will continue to monitor.
--- NOTE | 2021-11-16 17:40 | NUR ---
DIET UPDATED TO FULL LIQUID, PER PHONE CALL WITH DR. NGUYỄN. PT STATES HE LEFT BOTH HIS DENTURES AT HOME FOR FEAR THEY WOULD BE LOST HERE.
[2021-11-17 05:05] LABS: BASOPHILS ABSOLUTE AUTO 0.03 K/mm3 (0.00-0.23); BASOPHILS PERCENT AUTO 0 % (0-2); EOSINOPHILS ABSOLUTE AUTO 0.11 K/mm3 (0.00-0.68); EOSINOPHILS PERCENT AUTO 1 % (0-6); Hematocrit 30.2 % (37.0-53.0); Hemoglobin 10.8 g/dL (13.5-17.5); IMMATURE GRAN ABSOLUTE AUTO 0.13 K/mm3 (0.00-0.10); IMMATURE GRAN PERCENT AUTO 1 % (0-1); LYMPHOCYTES ABSOLUTE AUTO 0.79 K/mm3 (0.84-5.20); LYMPHOCYTES PERCENT AUTO 9 % (21-46); MONOCYTES ABSOLUTE AUTO 1.17 K/mm3 (0.16-1.47); MONOCYTES PERCENT AUTO 13 % (4-13); Mean Corpuscular HGB 39.1 pg (26.0-34.0); Mean Corpuscular HGB Conc 35.8 g/dL (31.5-36.5); Mean Corpuscular Volume 109 fL (80-100); NEUTROPHILS ABSOLUTE AUTO 6.95 K/mm3 (1.96-9.15); NEUTROPHILS PERCENT AUTO 76 % (41-73); Platelet Count 103 K/mm3 (150-400); RDW Coefficient Variation 23.3 % (11.7-14.2); Red Blood Cell Count 2.76 M/mm3 (4.30-5.90); White Blood Cell Count 9.18 K/mm3 (4.00-11.30)
--- NOTE | 2021-11-17 05:10 | NUR ---
SHIFT SUMMARY 71 YR M ADMITTED ON 11/16/21 FOR ABDOMINAL PAIN. FULL CODE. NO ACUTE CHANGES THIS SHIFT. PT HAS SHOWN NO SIGNS OF ALCOHOL WITHDRAWL BUT WILL CONTINUE TO MONITOR. HE HAS SLEPT FOR MOST OF THIS SHIFT AND HAS HAD NO C/O PAIN OR N/V. IV IS SALINE LOCKED. PT IS PLEASANT AND COOPERATIVE WITH CARE.
[2021-11-17 05:24] LABS: International Normalized Ratio 1.55; Prothrombin Time Results 15.8 Sec (9.7-11.5)
[2021-11-17 05:28] LABS: Albumin, Blood 2.2 g/dL (3.4-5.0); Albumin/Globulin Ratio 0.5 (0.8-1.8); Bilirubin, Total 17.7 mg/dL (0.1-1.0); Bun/Creatinine Ratio 17.9 (12.0-20.0); Calcium, Blood 8.7 mg/dL (8.5-10.1); Creatinine, Blood 0.67 mg/dL (0.60-1.20); Globulin, Blood 4.7 g/dL (2.2-4.0); Potassium, Blood 3.4 mmol/L (3.5-5.5); Total Protein, Blood 6.9 g/dL (6.4-8.2)
[2021-11-17] MEDS ORDERED: B-1100 M1 PO (12:12)
[2021-11-17] MEDS ORDERED: LACT10SY PO (12:12)
--- NOTE | 2021-11-17 15:43 | NUR ---
PT DISCHARGED FROM THE UNIT. DISCHARGE INSTRUCTIONS REVIEWED. MEDICATIONS FAXED TO PHARMACY. PILL BOX RETURNED TO PT. PT LEFT VIA WHEEL CHAIR. BROTHER TO DRIVE HOME.
== END 2021-11-17 13:28 | disposition home or self-care (01) | DRG 433 ==
LOC: ER 17:13 → MEDS 11-16 02:28
PROVIDERS: Family Medicine; Physician Assistant; Student in an Organized Health Care Education/Training Program; ADMIT Internal Medicine
DX: K70.10 Alcoholic hepatitis without ascites (principal); C34.90 Malignant neoplasm of unspecified part of unspecified bronchus or lung; K76.6 Portal hypertension; J96.10 Chronic respiratory failure, unspecified whether with hypoxia or hypercapnia; K76.82 Hepatic encephalopathy; K70.30 Alcoholic cirrhosis of liver without ascites; J44.9 Chronic obstructive pulmonary disease, unspecified; E78.00 Pure hypercholesterolemia, unspecified; I73.9 Peripheral vascular disease, unspecified; M35.00 Sjogren syndrome, unspecified; E86.0 Dehydration; E87.6 Hypokalemia; Z20.822 Contact with and (suspected) exposure to COVID-19; I48.91 Unspecified atrial fibrillation; F10.90 Alcohol use, unspecified, uncomplicated; E80.6 Other disorders of bilirubin metabolism; Z88.1 Allergy status to other antibiotic agents; Z79.51 Long term (current) use of inhaled steroids; Z99.81 Dependence on supplemental oxygen; Z79.899 Other long term (current) drug therapy; Z79.02 Long term (current) use of antithrombotics/antiplatelets; Z87.19 Personal history of other diseases of the digestive system; Z92.3 Personal history of irradiation; Z90.49 Acquired absence of other specified parts of digestive tract; Z98.890 Other specified postprocedural states; Z95.820 Peripheral vascular angioplasty status with implants and grafts; Z87.891 Personal history of nicotine dependence
CPT/HCPCS: 0241U; 36415; 71045; 74177; 76705; 80053; 81001; 82140; 82248; 83605; 83690; 83735; 83880; 84100; 85025; 85610; 87086; 93005; 93010; 96365-59; 96366; 96375; 99285-25; A9270; J0744; J3010; J3411; J3480; J7030; J7050; J7060; P9047; Q9967

== ENCOUNTER 2021-12-04 14:29 | Inpatient (IN) | payer MEDICARE ==
[2021-12-04 15:42] LABS: BASOPHILS ABSOLUTE AUTO 0.07 K/mm3 (0.00-0.23); BASOPHILS PERCENT AUTO 0 % (0-2); EOSINOPHILS ABSOLUTE AUTO 0.15 K/mm3 (0.00-0.68); EOSINOPHILS PERCENT AUTO 1 % (0-6); Hematocrit 35.9 % (37.0-53.0); Hemoglobin 13.3 g/dL (13.5-17.5); IMMATURE GRAN ABSOLUTE AUTO 0.31 K/mm3 (0.00-0.10); IMMATURE GRAN PERCENT AUTO 2 % (0-1); LYMPHOCYTES ABSOLUTE AUTO 0.53 K/mm3 (0.84-5.20); LYMPHOCYTES PERCENT AUTO 3 % (21-46); MONOCYTES ABSOLUTE AUTO 2.23 K/mm3 (0.16-1.47); MONOCYTES PERCENT AUTO 14 % (4-13); Mean Corpuscular HGB 38.8 pg (26.0-34.0); Mean Corpuscular Volume 105 fL (80-100); Mean Platelet Volume 9.6 fL (9.1-12.4); NEUTROPHILS ABSOLUTE AUTO 12.73 K/mm3 (1.96-9.15); NEUTROPHILS PERCENT AUTO 80 % (41-73); NRBC ABSOLUTE 0.03 K/mm3 (0.00-0.02); NRBC Auto 0.2 /100 WBC (0.0-0.2); Platelet Count 94 K/mm3 (150-400); RDW Coefficient Variation 17.2 % (11.7-14.2); RDW Standard Deviation 65.4 fL (35.1-46.3); Red Blood Cell Count 3.43 M/mm3 (4.30-5.90); White Blood Cell Count 16.02 K/mm3 (4.00-11.30)
[2021-12-04 16:06] LABS: Ethanol (Alcohol), Blood, Med <3 mg/dL
[2021-12-04 16:23] LABS: Alanine Aminotransfer (ALT/SGP 85 U/L (12-78); Albumin, Blood 1.9 g/dL (3.4-5.0); Albumin/Globulin Ratio 0.4 (0.8-1.8); Alk Phos 641 U/L (50-136); Anion Gap 12 mmol/L (6-16); Aspartate Aminotrans (AST/SGOT 177 U/L (12-37); Bilirubin, Total 35.6 mg/dL (0.1-1.0); Blood Urea Nitrogen 35 mg/dL (8-24); Bun/Creatinine Ratio 15.4 (12.0-20.0); CO2, Blood 22 mmol/L (21-32); Calcium, Blood 9.1 mg/dL (8.5-10.1); Chloride, Blood 92 mmol/L (98-108); Creatinine, Blood 2.27 mg/dL (0.60-1.20); Globulin, Blood 4.8 g/dL (2.2-4.0); Glomerular Filtration Rate 30 (60-); Glucose, Blood 118 mg/dL (70-99); Potassium, Blood 2.7 mmol/L (3.5-5.5); Sodium, Blood 126 mmol/L (136-145); Total Protein, Blood 6.7 g/dL (6.4-8.2)
--- NOTE | 2021-12-04 21:44 | NUR ---
COMFORT STATUS/ORDERS PT IN ROOM FROM ER, AND IS RESTING IN BED. PT DNR, WITH PLANS FOR HOSPICE PER RN REPORT. COMFORT CARE MEDICATIONS HAVE BEEN ORDERED, HOWEVER NO OFFICIAL COMFORT CARE ORDER IN CHART. PER NOTES FAMILY WOULD LIKE TO PROCEED WITH COMFORT CARE. LABS WERE STILL ORDERED ON PT. CALLED HOSPITALIST MARIO SAVAGE TO NOTIFY HIM THAT THERE WAS NO OFFICAL COMFORT CARE ORDER ON CHART DESPITE NOTES. HE STATES TO DC LAB ORDERS AND RESTRAINT ORDER AND THAT DR. BARNETT CAN ADDRESS COMFORT CARE ORDER IN AM.
--- NOTE | 2021-12-05 04:22 | NUR ---
SHIFT SUMMARY PT ER ADMIT THIS SHIFT FOR ESLD. NEW DIAGNOSIS OF EOTH CIRRHOSIS 11/16 PT HAS BEEN NONCOMPLIANT WITH LACTULOSE AT HOME. PT IS JAUNDICED T/O, URINE DARK BALDO, ABD SEVERLY DISTENDED. SCATTERED SCABS AND BRUISING. PT CONDITION TERMINAL PER PHYSICIAN NOTES. PLAN OF CARE HAS BEEN DISCUSSED WITH FAMILY PER DOCTORS NOTES. COMFORT CARE MEDICATIONS HAVE BEEN ORDERED. PT HAS RESTED T/O THE NIGHT, HE DENIES PAIN MOST OF THE NIGHT WHEN ASKED. PT DID REPORT PAIN THIS AM, MEDICATED PER EMAR WITH EFFECT. PT ABLE TO ANSWER QUESTIONS, AND EVEN SIT UP ON THE SIDE OF THE BED. PT DROWSY, BUT EASILY AWAKES TO VERBAL STIMULI. PT FAMILY WENT HOME BEFORE PT ARRIVED TO THE UNIT. THEY REPORT THAT THEY WILL RETURN LATER THIS AM. PT BP HAS BEEN UP IN DOWN, BP HAS BEEN SOFT. COMFORT ASSESSED T/O SHIFT. BED BATH GIVEN THIS SHIFT. BED ALARM IN PLACE, BED IN LOWEST POSITION, CALL LIGHT WITHIN REACH.
--- NOTE | 2021-12-05 08:00 | NUR ---
pt has been able to answer yes/no questions this am, lots of family in to see him, no s/s of distress, b/p low, was told he is terminal and will be comfort care, but isn't yet. he is very jaundiced. call light in reach.
[2021-12-05 10:05] LABS: BASOPHILS ABSOLUTE AUTO 0.07 K/mm3 (0.00-0.23); BASOPHILS PERCENT AUTO 1 % (0-2); EOSINOPHILS ABSOLUTE AUTO 0.22 K/mm3 (0.00-0.68); EOSINOPHILS PERCENT AUTO 2 % (0-6); Hematocrit 32.4 % (37.0-53.0); Hemoglobin 11.8 g/dL (13.5-17.5); IMMATURE GRAN ABSOLUTE AUTO 0.23 K/mm3 (0.00-0.10); IMMATURE GRAN PERCENT AUTO 2 % (0-1); LYMPHOCYTES ABSOLUTE AUTO 0.38 K/mm3 (0.84-5.20); LYMPHOCYTES PERCENT AUTO 3 % (21-46); MONOCYTES ABSOLUTE AUTO 1.64 K/mm3 (0.16-1.47); MONOCYTES PERCENT AUTO 12 % (4-13); Mean Corpuscular HGB 38.7 pg (26.0-34.0); Mean Corpuscular HGB Conc 36.4 g/dL (31.5-36.5); Mean Corpuscular Volume 106 fL (80-100); Mean Platelet Volume 9.6 fL (9.1-12.4); NEUTROPHILS ABSOLUTE AUTO 11.55 K/mm3 (1.96-9.15); NEUTROPHILS PERCENT AUTO 82 % (41-73); Platelet Count 87 K/mm3 (150-400); RDW Coefficient Variation 17.2 % (11.7-14.2); RDW Standard Deviation 67.2 fL (35.1-46.3); Red Blood Cell Count 3.05 M/mm3 (4.30-5.90); White Blood Cell Count 14.09 K/mm3 (4.00-11.30)
[2021-12-05 10:10] LABS: International Normalized Ratio 1.97; Prothrombin Time Results 19.8 Sec (9.7-11.5)
[2021-12-05 10:32] LABS: Magnesium, Blood 2.4 mg/dL (1.6-2.4)
[2021-12-05 10:37] LABS: Albumin, Blood 1.6 g/dL (3.4-5.0); Albumin/Globulin Ratio 0.4 (0.8-1.8); Bilirubin, Total 29.1 mg/dL (0.1-1.0); Bun/Creatinine Ratio 14.9 (12.0-20.0); Calcium, Blood 8.4 mg/dL (8.5-10.1); Creatinine, Blood 2.68 mg/dL (0.60-1.20); Globulin, Blood 4.1 g/dL (2.2-4.0); Phosphorus, Blood 4.4 mg/dL (2.5-4.9); Potassium, Blood 2.1 mmol/L (3.5-5.5); Total Protein, Blood 5.7 g/dL (6.4-8.2)
--- NOTE | 2021-12-05 18:12 | NUR ---
pt family in to see pt, they realize he is declining, and chose to move forward with comfort care, Dr. Nicholson notified, also moved him to a larger room to accomidate the family. pt still pretty alert, b/p in the 60's, call light in reach, suction set up.
--- NOTE | 2021-12-06 06:16 | NUR ---
ALERT TO SELF. MEDICATED FOR DISCOMFORT PER EMAR AND PATIENT/FAMILY REQUEST. BENADRYL ORDERED AND GIVEN FOR ITCHING; NO LONGER SCRATCHING AT IV AND ABD NOW. BLEEDING SCRATCH ON L EAR. INC CARE /TURN Q2 HRS. 5L O2 VIA NC. FAMILY AT BEDSIDE THROUGHOUT SHIFT; ENCOURAGED TO MAKE NEEDS KNOWN. FREQUENT ROUNDING AND ANTICIPATION OF NEEDS.
--- NOTE | 2021-12-06 10:08 | NUR ---
Comfort Care Visit Spoke with Dr Rivas prior to Pt visit and discussed case. Pt resting in bed with his eyes closed upon arrival. Pt appears comfortable with no S/S of distress at this time. Significant jaundiced noted. Pt's daughter Viviana at bedside. Offered emotional support as she is intermittently tearful. Spoke with Primary RN and discussed case. Palliative Care will remain available.
--- NOTE | 2021-12-06 13:46 | NUR ---
PT WAS SLUMPED TO RIGHT SIDE IN BED, MAKING OCCASIONAL GROANS AND GRIMACES. HELPED TO REPOSITION PATIENT PT ABLE TO SLEEP AND APPEARED MUCH MORE COMFORTABLE AFTER REPOSITIONING. NO MORE GRIMACE OR MOANING.
--- NOTE | 2021-12-06 17:36 | NUR ---
SHIFT SUMMARY PT HAS RESPONDED VERY WELL TO REPOSITIONING. HE HAS BEEN TRYING TO ROLL ON TO HIS RIGHT SIDE. HELPED PLACE PILLOWS AND PT REPORTS COMFORT. PT CONTINUES TO REPOSITION SELF IN BED FREQUENTLY. FAMILY AT BEDSIDE DURING SHIFT. PT WILL TALK OCCASIONALLY IN SHORT SENTENCES AND WILL OPEN HIS EYES AND RESPOND WHEN QUESTIONED.
--- NOTE | 2021-12-07 05:51 | NUR ---
PATIENT INCREAINGLY OBTUNDED, LETHARGIC, AND WITH AGONAL BREATH SOUNDS AFTER MIDNIGHT THIS SHIFT. MEDICATED AND REPOSITIONED FOR COMFORT NEEDED. NO HEARTBEAT PER METALLURGICAL TECHNICIAN AT APPROX [phone]. SUPPORT OFFERED /PROVIDED TO FAMILY THROUGHOUT SHIFT.
--- NOTE | 2021-12-07 07:21 | NUR ---
Upon receiving a request to visit family of pt, I enter pt's rm. Family are grieving appropriately. I conduct a brief life review and provide prayer for pt and the family. Family show signs of being comforted.
--- NOTE | 2021-12-07 09:40 | NUR ---
CHEMA FROM [facility] ARRIVED TO TRANSPORT PT. RN ASSISTED TO TRANSFER PT FROM MEDICAL BED TO [facility] ALL PERSONAL BELONGINGS HAD BEEN SENT HOME WITH PT'S FAMILY. ALL IV'S HAD BEEN REMOVED, POSTMORTUM CARE COMPLETED. FACESHEET GIVEN TO [facility] REP. PT WAS WHEELED OUT OF FACILITY WITHOUT INCIDENT. RN GAVE REPORT TO CHARGE NURSE.
== END 2021-12-07 04:53 | DRG 441 ==
LOC: ER 14:29 → MEDS 18:22
PROVIDERS: Physician Assistant; ADMIT Hospitalist
DX: K72.00 Acute and subacute hepatic failure without coma (principal); K76.7 Hepatorenal syndrome; N17.9 Acute kidney failure, unspecified; E87.20 Acidosis, unspecified; D68.4 Acquired coagulation factor deficiency; E87.1 Hypo-osmolality and hyponatremia; J96.11 Chronic respiratory failure with hypoxia; K70.10 Alcoholic hepatitis without ascites; Z66 Do not resuscitate; Z51.5 Encounter for palliative care; E78.5 Hyperlipidemia, unspecified; J44.9 Chronic obstructive pulmonary disease, unspecified; I73.9 Peripheral vascular disease, unspecified; M35.00 Sjogren syndrome, unspecified; Z99.81 Dependence on supplemental oxygen; Z88.1 Allergy status to other antibiotic agents; Z95.820 Peripheral vascular angioplasty status with implants and grafts; Z79.899 Other long term (current) drug therapy; E87.6 Hypokalemia; D72.818 Other decreased white blood cell count; F10.20 Alcohol dependence, uncomplicated; K70.31 Alcoholic cirrhosis of liver with ascites; N20.0 Calculus of kidney; K76.82 Hepatic encephalopathy
CPT/HCPCS: 36415; 71045; 80053; 82140; 83605; 83690; 83735; 84100; 85025; 85610; 93005; 93010; A9270; G0480; J1200; J1956; J2270; J2405; J3480; J7030